=== PATIENT | female | born 1940 | race Caucasian/White ===

== ENCOUNTER 2021-04-16 08:53 | Outpatient (REF) | payer MEDICARE, SELFPAY ==
[2021-04-16 11:52] LABS: MANUAL DIFF FLAG NO
[2021-04-16 11:55] LABS: Basophils Absolute Auto 0.1 X10*3/uL (0.0-0.2); Basophils Percent Auto 1.1 % (0-2); Eosinophils Absolute Auto 0.1 X10*3/uL (0.0-0.4); Eosinophils Percent Auto 1.6 % (0-4); Hemoglobin 14.4 g/dl (12.0-16.0); Imm Gran Abs Auto 0.01 X10*3/uL (0.00-0.03); Imm Gran Pct Auto 0.2 % (0.0-0.4); Lymphocytes Absolute Auto 2.1 X10*3/uL (1.2-4.9); Lymphocytes Percent Auto 33.1 % (20-40); Mean Corpuscular Hemoglobin 29.8 pg (27.0-33.0); Mean Corpuscular Volume 93.2 fL (80-98); Mean Platelet Volume 10.8 fL (9.4-12.3); Monocytes Absolute Auto 0.5 X10*3/uL (0.1-1.2); Monocytes Percent Auto 7.4 % (2-11); Neutrophils Absolute Auto 3.5 X10*3/uL (2.0-8.3); Neutrophils Percent Auto 56.6 % (45-73); Platelet Count 243 X10*3/uL (160-400); Red Blood Count 4.83 X10*6/uL (4.20-5.50); White Blood Count 6.3 X10*3/uL (4.8-10.8)
[2021-04-16 12:13] LABS: Alanine Aminotransferase 14 U/L (0-31); Anion Gap 15 (12-20); Aspartate Amino Transferase 16 U/L (5-31); Blood Urea Nitrogen 15 mg/dL (9-16); Calcium 10.2 mg/dL (8.4-10.2); Carbon Dioxide 27 mmol/L (22-29); Chloride 105 mmol/L (96-108); Cholesterol 161 mg/dL; Estimated Glomerular Filt Rate > 60; Glucose Fasting 126 mg/dL (60-99); HDL Cholesterol 50 mg/dL; LDL Cholesterol Calculated 81 mg/dl; Potassium 4.4 mmol/L (3.3-5.1); Sodium 143 mmol/L (135-145); Triglycerides 153 mg/dL
[2021-04-16 12:20] LABS: Estimated Average Glucose 131 mg/dL; Hemoglobin A1c % 6.2 %
[2021-04-16 12:45] LABS: Folate 18.7 ng/mL (> or = 4.0); Vitamin B12 462 pg/mL (200-900)
[2021-04-16 12:48] LABS: TSH reflex Free T4 2.02 uIU/mL (0.32-4.0); Vitamin D 25-OH Total 32.9 ng/mL (>30)
== END 2021-04-16 08:54 | disposition home or self-care (01) ==
LOC: HO.HMGCLDS 08:53
PROVIDERS: PCP Internal Medicine; Visit Provider Internal Medicine
DX: E78.5 Hyperlipidemia, unspecified (principal); F03.90 Unspecified dementia, unspecified severity, without behavioral disturbance, psychotic disturbance, mood disturbance, and anxiety; I10 Essential (primary) hypertension; R73.01 Impaired fasting glucose; Z78.0 Asymptomatic menopausal state
CPT/HCPCS: 36415; 80048; 80061; 82306; 82607; 82746; 83036; 84443; 84450; 84460; 85025

== ENCOUNTER 2022-04-25 11:35 | Outpatient (REF) | payer MEDICARE, SELFPAY ==
[2022-04-25 13:52] LABS: MANUAL DIFF FLAG NO
[2022-04-25 13:59] LABS: Basophils Absolute Auto 0.1 X10*3/uL (0.0-0.2); Eosinophils Absolute Auto 0.2 X10*3/uL (0.0-0.4); Eosinophils Percent Auto 2.2 % (0-4); Hematocrit 41.6 % (37.0-47.0); Hemoglobin 13.3 g/dl (12.0-16.0); Imm Gran Abs Auto 0.04 X10*3/uL (0.00-0.03); Imm Gran Pct Auto 0.5 % (0.0-0.4); Lymphocytes Percent Auto 27.3 % (20-40); Mean Corpuscular Hemoglobin 29.5 pg (27.0-33.0); Mean Corpuscular Volume 92.2 fL (80.0-98.0); Mean Platelet Volume 11.6 fL (9.4-12.3); Monocytes Absolute Auto 0.7 X10*3/uL (0.1-1.2); Neutrophils Absolute Auto 4.4 x10*3/uL (2.0-8.3); Platelet Count 211 X10*3/uL (160-400); Red Blood Count 4.51 X10*6/uL (4.20-5.50); Red Cell Distribution Width 13.3 % (11.0-16.0); White Blood Count 7.4 X10*3/uL (4.8-10.8)
[2022-04-25 14:17] LABS: Estimated Average Glucose 154 mg/dL
[2022-04-25 14:19] LABS: Alanine Aminotransferase 11 U/L (0-31); Anion Gap 15 (12-20); Aspartate Amino Transferase 15 U/L (5-31); Blood Urea Nitrogen 15 mg/dL (9-16); Calcium 9.2 mg/dL (8.4-10.2); Carbon Dioxide 25 mmol/L (22-29); Chloride 108 mmol/L (96-108); Cholesterol 184 mg/dL; Estimated Glomerular Filt Rate > 60; Glucose Fasting 119 mg/dL (60-99); HDL Cholesterol 43 mg/dL; LDL Cholesterol Calculated 102 mg/dl; Potassium 4.6 mmol/L (3.3-5.1); Sodium 143 mmol/L (135-145); Triglycerides 195 mg/dL
[2022-04-25 14:31] LABS: Vitamin D 25-OH Total 18.9 ng/mL (>30)
[2022-04-25 15:25] LABS: Folate 11.2 ng/mL (> or = 4.0); Vitamin B12 355 pg/mL (200-900)
== END 2022-04-25 11:36 | disposition home or self-care (01) ==
LOC: HO.HMGCLDS 11:35
PROVIDERS: PCP Internal Medicine; Visit Provider Internal Medicine
DX: F03.90 Unspecified dementia, unspecified severity, without behavioral disturbance, psychotic disturbance, mood disturbance, and anxiety (principal); M19.90 Unspecified osteoarthritis, unspecified site; R73.01 Impaired fasting glucose; E78.5 Hyperlipidemia, unspecified
CPT/HCPCS: 36415; 80048; 80061; 82306; 82607; 82746; 83036; 84450; 84460; 85025

== ENCOUNTER 2022-10-31 10:02 | Outpatient (REF) | payer MEDICARE, BC, SELFPAY ==
[2022-10-31 13:19] LABS: Alanine Aminotransferase 14 U/L (0-31); Anion Gap 13 (12-20); Aspartate Amino Transferase 13 U/L (5-31); Blood Urea Nitrogen 19 mg/dL (9-16); Calcium 9.6 mg/dL (8.4-10.2); Carbon Dioxide 27 mmol/L (22-29); Chloride 106 mmol/L (96-108); Cholesterol 150 mg/dL; Estimated Glomerular Filt Rate > 60; Glucose Fasting 135 mg/dL (60-99); HDL Cholesterol 45 mg/dL; LDL Cholesterol Calculated 91 mg/dl; Potassium 4.4 mmol/L (3.3-5.1); Sodium 142 mmol/L (135-145); Triglycerides 72 mg/dL
[2022-10-31 13:35] LABS: TSH reflex Free T4 2.04 uIU/mL (0.32-4.0); Vitamin D 25-OH Total 39.9 ng/mL (>30)
== END 2022-10-31 10:03 | disposition home or self-care (01) ==
LOC: HO.HMGCLDS 10:02
PROVIDERS: PCP Internal Medicine; Visit Provider Internal Medicine
DX: M19.90 Unspecified osteoarthritis, unspecified site (principal); R73.01 Impaired fasting glucose; F03.90 Unspecified dementia, unspecified severity, without behavioral disturbance, psychotic disturbance, mood disturbance, and anxiety; E78.5 Hyperlipidemia, unspecified; N95.9 Unspecified menopausal and perimenopausal disorder
CPT/HCPCS: 36415; 80048; 80061; 82306; 84443; 84450; 84460

== ENCOUNTER 2022-11-03 12:56 | Outpatient (REF) | payer MEDICARE, BC, SELFPAY ==
--- NOTE | ~2022-11-03 | XR_ITS ---
EXAMINATION: XR LUMBOSACRAL SPINE WITH OBLIQUES CLINICAL INFORMATION: Chronic pain. COMPARISON: None available. TECHNIQUE: AP, both oblique, and lateral views of the lumbar spine. Lateral view of the lumbosacral junction. FINDINGS: There is normal lumbar lordosis. There are bilateral L1 ribs. The vertebral heights and alignment is normal. No visible acute fracture or dislocation. No lytic or sclerotic process seen. There is bilateral L5-S1 facet joint hypertrophy. The SI joints are symmetrical and normal. XR/XR lumbar spine 4V min IMPRESSION: Bilateral L5-S1 facet joint hypertrophy. No visible acute fracture, dislocation or lytic process seen.
== END 2022-11-03 12:57 | disposition home or self-care (01) ==
LOC: HO.HMGCX 12:56
PROVIDERS: PCP Internal Medicine; Visit Provider Internal Medicine
DX: M54.50 Low back pain, unspecified (principal); G89.29 Other chronic pain
CPT/HCPCS: 72110

== ENCOUNTER 2023-01-08 10:46 | Outpatient (AMB) | payer MEDICARE, BC, SELFPAY ==
--- NOTE | 2023-01-08 11:11 | A.OFFPC_ITS ---
Vital Signs 01/08/23 11:13 Height 5 ft 4 in Weight 124 lb 2 oz BMI 21.3 BP 120/72 Blood Pressure Location Rt brachial Position Sitting Pulse 68 Pulse Source Pulse Oximeter Pulse Oximetry (%) 99 Oxygen Delivery Method Room Air Intake Visit Reasons: Frequent Urination Intake Note: Pt is here today for frequent urination Allergies lisinopril Adverse Reaction (Unknown, Verified 01/08/23 11:20) cough Medication List - Last Reconciled 01/08/23 by Cristela Brand MD acetaminophen (Tylenol) 325 mg PO QID PRN atorvastatin 10 mg PO Q OTHER DAY cholecalciferol (vitamin D3) 2,000 units PO DAILY donepezil 10 mg PO DAILY hydrochlorothiazide 12.5 mg PO Q OTHER DAY memantine 10 mg PO BID tramadol 50 mg PO DAILY PRN vitamin B complex 1 tab PO DAILY Tobacco use date assessed: 01/08/23 Fall risk assessment: 2 + Falls in past year (3 times) Last assessed Fall Risk: 01/08/23 HPI Frequent Urination HPI Details 82-year-old lady with dyslipidemia, dementia, and diabetes mellitus type 2 currently managed by diet, here today accompanied by daughter complaining of frequent urination, not accompanied dysuria, no back pain or abdominal pain but does complain of some pressure over suprapubic area. Denies any accompanying fever, no nausea or vomiting. [facility] Medical History (Updated 01/08/23 @ 11:45 by Cristela Brand MD) Chronic low back pain Dementia Dyslipidemia Osteoarthritis Type 2 diabetes mellitus without complication, without long-term current use of insulin Surgical History History of appendectomy Hx laparoscopic cholecystectomy Family History Mother HTN (hypertension) Hyperlipidemia Diabetes mellitus Son No problems noted. Son No problems noted. Daughter No problems noted. Daughter No problems noted. Social History Housing: Other Housing Other:: Lives with daughter Teto Patient Tobacco Use Status: Former Tobacco user Years Smoked: 30 yrs e-Cigarette/Vaping Use: Never Used Second Hand Smoke Exposure: No Current occupational status: retired Cognitive needs: No Hearing needs: No Vision needs: Yes Questionnaire Thrive Questionnaire Date Thrive assessed: 05/07/22 AUDIT C Alcohol Use Questionnaire (AUDIT-C) 1. How often do you have a drink containing alcohol?: Never Total Score: 0 LUZMA-7 AMB Questionnaire LUZMA-7 Date LUZMA - 7 assessed: 05/07/22 Source: Developed by Drs. Stanley Poe, Ann Donovan, Juan Wolf and colleagues, with an educational fercho from [employer]. Review of Systems Const All systems reviewed & are unremarkable except as noted in HPI and below Eyes Details: Up-to-date with her eye exam [facility] [place] Physical exam ([facility]) Vital Signs: Last Vital Signs Pulse 68 01/08/23 11:13 BP 120/72 01/08/23 11:13 Pulse Ox 99 01/08/23 11:13 Oxygen Delivery Method Room Air 01/08/23 11:13 BMI result Body Mass Index 21.3 Tobacco/Smoking Status: Tobacco use Status Tobacco use date assessed 01/08/23 01/08/23 11:19 Patient Tobacco Use Status Former Tobacco user 01/08/23 11:12 e-Cigarette/Vaping Use Never Used 01/08/23 11:12 Thrive Assessment: Date of Thrive Assessment Date Thrive assessed 05/07/22 01/08/23 11:12 Const Other: Alert oriented x3, no acute distress noted ambulatory normal Orientation/consciousness: patient oriented x3 HENMT Mouth: Normal oral and palatal mucosa present, oropharynx normal and moist mucous membranes Neck Other: Supple with no lymphadenopathy, thyroid gland nonpalpable Resp Auscultation: clear to auscultation bilaterally Cardio Other: S1-S2 present regular rate and rhythm GI Other: Normal bowel sounds, soft, nontender with no mass palpated General: Yes no CVA tenderness Back/Spine/Pelvis Back: no CVA tenderness Neuro General: patient oriented x3, gait normal, moves all extremities and no focal motor deficits Results AMB Urinalysis, Automated UA Leukoctes 0 Deborah/uL Last Edit by Nohemi Candelaria CMA on 01/08/23 11:12 UA Nitrite Negative Last Edit by Nohemi Candelaria CMA on 01/08/23 11:12 UA Urobilinogen 0.2 mg/dL Last Edit by Nohemi Candelaria CMA on 01/08/23 11:12 UA Protein 0 mg/dL Last Edit by Nohemi Candelaria CMA on 01/08/23 11:12 UA pH 5.5 Last Edit by Nohemi Candelaria CMA on 01/08/23 11:12 UA Blood 0 Marco Antonio/uL Last Edit by Nohemi Candelaria CMA on 01/08/23 11:12 UA Specific [place] 1.030 Last Edit by Nohemi Candelaria CMA on 01/08/23 11:1 2 UA Ketone Negative Last Edit by Nohemi Candelaria CMA on 01/08/23 11:12 UA Bilirubin 0 mg/dL Last Edit by Nohemi Candelaria CMA on 01/08/23 11:12 UA Glucose 0 mg/dL Last Edit by Nohemi Candelaria CMA on 01/08/23 11:12 AMB Fasting Glucose AMB Fasting Glucose 140 mg/dL Last Edit by Remedios Negrete CMA on 01/08/23 11 :43 AMB Hemoglobin A1c AMB Hemoglobin A1c 6.6 % Last Edit by Remedios Negrete CMA on 01/08/23 11:47 Results Reviewed Results Reviewed: Laboratory Last Values Fast Glucose (Clinic) 140 mg/dL 01/08/23 11:41 Hgb A1c (Clinic) 6.6 % (4.0-6.0) H 01/08/23 11:44 Urine pH (Auto) 5.5 01/08/23 11:12 Specific [place] (Auto) 1.030 01/08/23 11:12 Urine Protein (Auto) 0 mg/dL 01/08/23 11:12 Glucose (UA)(Auto) 0 mg/dL 01/08/23 11:12 Urine Ketones (Auto) Negative 01/08/23 11:12 Urine Blood (Auto) 0 Marco Antonio/uL 01/08/23 11:12 Urine Nitrite (Auto) Negative 01/08/23 11:12 Urine Bilirubin (Auto) 0 mg/dL 01/08/23 11:12 Urine Urobilinogen (Auto) 0.2 mg/dL 01/08/23 11:12 Leukocyte Esterase (Auto) 0 Deborah/uL 01/08/23 11:12 Assessment and Plan Assessment & Plan (1) Type 2 diabetes mellitus without complication, without long-term current use of insulin: Code(s): E11.9 - Type 2 diabetes mellitus without complications Plan: Hemoglobin A1c is at 6.6% today and with fasting glucose at 140 mg/dl. continue to check fasting blood sugar at home, maintain log and bring to next appointment for review. Reinforced diabetic diet and regular exercise with patient. Counseled regarding importance of yearly diabetes retinopathy screening up-to-date currently [facility] [place]. Patient advised to inspect feet daily, for any signs of injury, callus or infection, sees Dr. Rutherford yearly. Compliance with diet and regular exercise again stressed. Blood pressure goal is less than 130/80, goal LDL is less than 100 and goal hemoglobin A1c is less than 7% follow-up appointment made in after repeat fasting labs done (2) Urinary frequency: Code(s): R35.0 - Frequency of micturition Plan: Urinalysis completely normal. Will stop HCTZ Orders: Orders AMB Urinalysis Automated 01/08/23 Z13.9 - Encounter for screening, unspecified AMB Fasting Glucose 01/08/23 Z13.9 - Encounter for screening, unspecified AMB Hemoglobin A1c 01/08/23 Z13.9 - Encounter for screening, unspecified Coding Level of Care Code Est Pt Level 3 (92723) Diagnoses Type 2 diabetes mellitus without complication, without long-term current use of insulin E11.9 Urinary frequency R35.0
[2023-01-08 11:13] VITALS: BP 120/72; PULSE 68; O2SAT 99; BMI 21.3
== END 2023-01-08 12:11 | disposition home or self-care (01) ==
LOC: HO.HMGC 10:46
PROVIDERS: PCP Internal Medicine; Visit Provider Internal Medicine
DX: E11.9 Type 2 diabetes mellitus without complications (principal); R35.0 Frequency of micturition
CPT/HCPCS: 81003; 82948; 83036; 99213

== ENCOUNTER 2023-04-21 08:09 | Outpatient (REF) | payer MEDICARE, BC, SELFPAY ==
[2023-04-21 12:06] LABS: Estimated Average Glucose 143 mg/dL; Hemoglobin A1c % 6.6 % (<6.0)
[2023-04-21 12:23] LABS: Alanine Aminotransferase 13 U/L (0-31); Anion Gap 13 (12-20); Aspartate Amino Transferase 15 U/L (5-31); Blood Urea Nitrogen 20 mg/dL (9-16); Carbon Dioxide 25 mmol/L (22-29); Chloride 108 mmol/L (96-108); Cholesterol 146 mg/dL (<200); Creatinine Urine 108.84 mg/dL; Estimated Glomerular Filt Rate > 60; Glucose Fasting 121 mg/dL (60-99); HDL Cholesterol 47 mg/dL (>40); LDL Cholesterol Calculated 75 mg/dL (<100); Microalbum/Creatinine Ratio Ur 8.2 ug/mg cr (<30); Potassium 4.1 mmol/L (3.3-5.1); Sodium 142 mmol/L (135-145); Triglycerides 122 mg/dL (<150); Vitamin D 25-OH Total 90.8 ng/mL (>30)
== END 2023-04-21 08:10 | disposition home or self-care (01) ==
LOC: HO.WFDLDS 08:09
PROVIDERS: Visit Provider Internal Medicine
DX: E11.65 Type 2 diabetes mellitus with hyperglycemia (principal); N95.9 Unspecified menopausal and perimenopausal disorder; E78.5 Hyperlipidemia, unspecified
CPT/HCPCS: 36415; 80048; 80061; 82043; 82306; 83036; 84450; 84460

== ENCOUNTER 2023-05-11 10:14 | Outpatient (AMB) | payer MEDICARE, BC, SELFPAY ==
--- NOTE | 2023-05-11 10:32 | A.OFFPC_ITS ---
Vital Signs 05/11/23 10:48 Height 5 ft 4 in Weight 125 lb BMI 21.5 BP 120/76 Blood Pressure Location Rt brachial Position Sitting Pulse 71 Pulse Source Pulse Oximeter Pulse Oximetry (%) 96 Oxygen Delivery Method Room Air Intake Visit Reasons: 4m follow up Intake Note: Pt is here today for her lab f/u results Allergies lisinopril Adverse Reaction (Unknown, Verified 05/11/23 10:51) cough Medication List - Last Reconciled 05/11/23 by Cristela Brand MD acetaminophen (Tylenol) 325 mg PO QID PRN atorvastatin 10 mg PO Q OTHER DAY cholecalciferol (vitamin D3) 2,000 units PO DAILY donepezil 10 mg PO DAILY memantine 10 mg PO QAM tramadol 50 mg PO DAILY PRN vitamin B complex 1 tab PO DAILY Tobacco use date assessed: 05/11/23 Fall risk assessment: No Falls in past year Last assessed Fall Risk: 05/11/23 Dental Screening Dental Screen Date: 05/11/23 Did you have a dental visit in the last 12 months?: No Did you have a dental problem in the last 6 months where you did not have access to dental care?: No Was dental information given to patient?: Patient has dentist HPI 4m follow up HPI Details 82-year-old lady with diabetes mellitus, dyslipidemia, hypertension, and dementia, here today for follow-up. She had recent fasting labs done which showed normal electrolytes, renal function, fasting glucose 121 mg/dL , liver enzymes and vitamin-D low as well as lipid levels are all within normal limits. Latest hemoglobin A1c is at 6.6%. Has been compliant with taking medications but activity levels is declining. She currently lives with her daughter, and goes to the [facility], which patient states she is enjoying doing [employer] Medical History Type 2 diabetes mellitus without complication, without long-term current use of insulin Chronic low back pain Osteoarthritis Dementia Dyslipidemia Surgical History Hx laparoscopic cholecystectomy History of appendectomy Family History Mother HTN (hypertension) Hyperlipidemia Diabetes mellitus Son No problems noted. Son No problems noted. Daughter No problems noted. Daughter No problems noted. Social History Housing: Other Housing Other:: Lives with daughter Teto Hurtado Tobacco Use Status: Former Tobacco user Years Smoked: 30 yrs e-Cigarette/Vaping Use: Never Used Second Hand Smoke Exposure: No Current occupational status: retired Cognitive needs: No Hearing needs: No Vision needs: Yes Questionnaire PHQ-9 Over the last 2 weeks, how often have you been bothered by any of the following problems? 1. Little interest or pleasure in doing things: more than half the days 2. Feeling down, depressed, or hopeless: not at all 3. Trouble falling or staying asleep, or sleeping too much: several days 4. Feeling tired or having little energy: several days 5. Poor appetite or overeating: not at all 6. Feeling bad about yourself - or that you are a failure or have let yourself or your family down: not at all 7. Trouble concentrating on things, such as reading the newspaper or watching television: nearly every day 8. Moving or speaking so slowly that other people could have noticed. Or the opposite - being so fidgety or restless that you have been moving around a lot more than usual: nearly every day 9. Thoughts that you would be better off or of hurting yourself in some way: not at all Total score: 10 Depression Screening Interpretation: Negative 16763 - PHQ-9 Billing: Yes Source: Developed by Drs. Stanley Poe, Ann Donovan, Juan Wolf and colleagues, with an educational fercho from [employer]. Thrive Questionnaire Date Thrive assessed: 05/11/23 I am a: Patient What is your living situation today?: I have a steady place to live Within the past 12 months, did the food you bought not last and you didn't have the money to get more?: Never true Within the past 12 months, did you worry whether your food would run out before you got money to buy more?: Never true Do you have trouble paying for medicines?: No Do you have trouble getting transportation to medical appointments?: No Do you have trouble paying your heating and electricity bill?: No Do you have trouble taking care of your child, family member or friend?: Yes Do you have trouble with day-to-day activities such as bathing, preparing meals, shopping, managing finances, etc.?: No Are you currently unemployed and looking for a job?: No Are you interested in more education?: No LUZMA-7 AMB Questionnaire LUZMA-7 Date LUZMA - 7 assessed: 05/11/23 Feeling nervous, anxious, or on edge: 0 = Not at all Not being able to stop or control worryin = Not at all Worrying too much about different things: 0 = Not at all Trouble relaxin = Not at all Being so restless that it is hard to sit still: 0 = Not at all Becoming easily annoyed or irritable: 0 = Not at all Feeling afraid as if something awful might happen: 0 = Not at all Total LUZMA-7 score (0-4 normal; 5-9 mild; 10-14 moderate; 15-21 severe): 0 Source: Developed by Drs. Stanley Poe, Ann Donovan, Juan Wolf and colleagues, with an educational fercho from [employer]. LUZMA-7 Assessment Billing LUZMA-7 Assessment Tool: LUZMA-7 Assessment 37547 Review of Systems Const Denies fever(s), Denies headache(s) and Denies weakness Eyes Denies change in vision ENT Denies dizziness, Denies headache(s), Denies nasal congestion, Denies nasal discharge and Denies sore throat Card Denies chest pain, Denies lightheadedness, Denies palpitations and Denies dyspnea Resp Denies chest congestion, Denies cough, Denies dyspnea and Denies wheezing GI Denies abdominal pain, Denies change in bowel habits and Denies heartburn Denies hematuria, Denies urinary frequency, Denies dysuria and Denies urinary urgency Musc Reports as per HPI, Denies radiating pain into limb and Reports stiffness Skin/Breast Denies breast swelling, Denies breast pain and Denies rash Neuro Denies dizziness, Denies headache(s) and Denies weakness Endo Denies polydipsia, Denies polyuria and Denies palpitations Colin/Lymph Denies easy bruising Aller/Immun Denies seasonal rhinorrhea and Denies wheezing Physical exam ([facility]) Vital Signs: Last Vital Signs Pulse 71 05/11/23 10:48 BP 120/76 05/11/23 10:48 Pulse Ox 96 05/11/23 10:48 Oxygen Delivery Method Room Air 05/11/23 10:48 BMI result Body Mass Index 21.5 Tobacco/Smoking Status: Tobacco use Status Tobacco use date assessed 05/11/23 05/11/23 10:33 Patient Tobacco Use Status Former Tobacco user 05/11/23 10:33 e-Cigarette/Vaping Use Never Used 05/11/23 10:33 PHQ-9: PHQ-9 Score PHQ-9: Total score 10 05/11/23 11:25 Depression Screening Interpretation: Negative Thrive Assessment: Date of Thrive Assessment Date Thrive assessed 05/11/23 05/11/23 11:25 Const Other: Alert oriented x3, no acute distress noted ambulatory normal Orientation/consciousness: patient oriented x3 HENMT Mouth: Normal oral and palatal mucosa present, oropharynx normal and moist mucous membranes Eyes General: appearance normal, both eyes and all related structures Neck Other: Supple with no lymphadenopathy, thyroid gland nonpalpable Resp Auscultation: clear to auscultation bilaterally Cardio Other: S1-S2 present regular rate and rhythm GI Other: Normal bowel sounds, soft, nontender with no mass palpated General: Yes no CVA tenderness Back/Spine/Pelvis Back: no CVA tenderness Skin General skin exam: no rashes or lesions noted Neuro General: patient oriented x3, gait normal, moves all extremities and no focal motor deficits Extrem General: Yes full ROM, Yes no joint enlargement, Yes no clubbing, cyanosis or edema and Yes normal gait Psych Appearance: grossly normal and well kempt Mental Status: mental status grossly normal Speech and movement: Slowed speech present (Psych) Affect: normal affect Attitude: cooperative Results Reviewed Results Reviewed: RUN: 05/11/23 1050 PAGE 1 [facility] [address] [place] [id number] [employer] Software Engineer: Nicho Blunt M.D. Specimen Inquiry Name: Kisha Mejia Age/Sex: 82/F : 1940 Unit#: [id number] Attend Dr: Cristela Brand MD Re04/21/23 Status: DEP REF Location: [facility] Disch: SPEC : [id number] RENETTA: 04/21/23 STATUS: COMP REQ : [id number] RECD: 04/21/23-[address]: Cristela Brand MD COMP: 04/21/23 ENTERED: 04/21/[address]: ORDERED: Met Prof Fast, AST, ALT, Lipid Panel, Vitamin D 25-OH Test Result Flag Reference Site Sodium 142 135-145 mmol/L Potassium 4.1 3.3-5.1 mmol/L CL 108 96-108 mmol/L CO2 25 22-29 mmol/L Gap 13 12-20 BUN 20 H 9-16 mg/dL Creat 0.74 0.5-1.4 mg/dL EGFR > 60 NOTE: For -Macanese individuals, multiply the result by 1.210. Chronic Kidney Disease: Estimated GFR < 60 mL/min/1.73m2 Severe Kidney Disease: Estimated GFR < 15 mL/min/1.73m2 FBS 121 H 60-99 mg/dL A fasting glucose from 100-125 mg/dl is considered impaired (pre-diabetes). CA 10.0 8.4-10.2 mg/dL AST (GOT) 15 5-31 U/L ALT (GPT) 13 0-31 U/L Triglyceride 122 <150 mg/dL Desirable Triglyceride: less than 150 mg/dL Borderline High Triglyceride 150-199 mg/dL High Triglyceride: 200-499 mg/dL Very High Triglyceride: greater than or equal to 5OO mg/dL Cholesterol 146 <200 mg/dL Desirable Cholesterol: less than 200 mg/dL Borderline High Cholesterol: 200-239 mg/dL High Cholesterol: greater than 239 mg/dL LDL Calculated 75 <100 mg/dL Desirable LDL: less than 100 mg/dL Near Optimal/Above Optimal LDL: 110-129 mg/dL Borderline High LDL: 130-159 mg/dL High LDL: 160-189 mg/dL Very High LDL: greater than or equal to 190 mg/dL HDL 47 >40 mg/dL Desirable HDL: greater than 40 mg/dL Note: This HDL assay may give artificially low results in patients with liver disease. Vit D 25-OH Tot 90.8 >30 ng/mL Health Based Reference Values* < 20 ng/mL Deficient 20-30 ng/mL Insufficient > 30 ng/mL Sufficient Laboratory Tests 04/21/23 08:13 Estimat Average Glucose 143 Hemoglobin A1c % 6.6 H Assessment and Plan Assessment & Plan (1) Type 2 diabetes mellitus without complication, without long-term current use of insulin: Code(s): E11.9 - Type 2 diabetes mellitus without complications Plan: Hemoglobin A1c is 6.6%, continued on controlling diabetes through diet and exercise. Does not want to start on any new medications at present time (2) Dyslipidemia: Code(s): E78.5 - Hyperlipidemia, unspecified Plan: Reviewed recent fasting lipid profile with patient with levels within normal limits . Continue with atorvastatin 10 mg every other day , in addition to adherence to low-cholesterol diet and regular exercise, at least 30 minutes 3 to 4 times a week. Advised patient to make healthy food choices, eat more fruits, vegetables, whole grains, wild caught fish and low-fat dairy. Limit amount of meat and fried or fatty food products, as well as processed foods and fast foods. Follow-up scheduled with repeat fasting lipid panel in 6 months. (3) Dementia: Code(s): F03.90 - Unspecified dementia, unspecified severity, without behavioral disturbance, psychotic disturbance, mood disturbance, and anxiety Qualifiers: Dementia type: vascular dementia Dementia severity: unspecified severity Dementia behavioral or psychological symptom: without behavioral, psychotic, or mood disturbance or anxiety Qualified Code(s): F01.50 - Vascular dementia, unspecified severity, without behavioral disturbance, psychotic disturbance, mood disturbance, and anxiety Plan: Stable on memantine and donepezil (4) Osteoarthritis: Code(s): M19.90 - Unspecified osteoarthritis, unspecified site Plan: Currently takes acetaminophen 325 mg daily, and an occasional tramadol as needed for severe joint pains. Orders: Orders Vitamin D 25-OH Total 10/23/23 E11.9 - Type 2 diabetes mellitus without complications, E78.5 - Hyperlipidemia, unspecified, Z78.0 - Asymptomatic menopausal state Lipid Panel 10/23/23 E11.9 - Type 2 diabetes mellitus without complications, E78.5 - Hyperlipidemia, unspecified, Z78.0 - Asymptomatic menopausal state Microalbumin, Random (w Creat) 10/23/23 E11.9 - Type 2 diabetes mellitus without complications, E78.5 - Hyperlipidemia, unspecified, Z78.0 - Asymptomatic menopausal state Basic Metabolic Panel Fasting 10/23/23 E11.9 - Type 2 diabetes mellitus without complications, E78.5 - Hyperlipidemia, unspecified, Z78.0 - Asymptomatic menopausal state Alanine Aminotransferase 10/23/23 E11.9 - Type 2 diabetes mellitus without complications, E78.5 - Hyperlipidemia, unspecified, Z78.0 - Asymptomatic menopausal state Hemoglobin A1c 10/23/23 E11.9 - Type 2 diabetes mellitus without complications, E78.5 - Hyperlipidemia, unspecified, Z78.0 - Asymptomatic menopausal state Aspartate Amino Transferase 10/23/23 E11.9 - Type 2 diabetes mellitus without complications, E78.5 - Hyperlipidemia, unspecified, Z78.0 - Asymptomatic menopausal state Medications: Changed From memantine 10 mg PO BID 180 caps 3RF To memantine 10 mg PO QAM Coding Level of Care Code Est Pt Level 4 (22720) Diagnoses Type 2 diabetes mellitus without complication, without long-term current use of insulin E11.9 Dyslipidemia E78.5 Vascular dementia without behavioral disturbance, psychotic disturbance, mood disturbance, or anxiety, unspecified dementia severity F01.50 Dementia type: vascular dementia Dementia severity: unspecified severity Dementia behavioral or psychological symptom: without behavioral, psychotic, or mood disturbance or anxiety Osteoarthritis M19.90 Additional Codes LUZMA-7 Assessment Billing - LUZMA-7 Assessment Tool: LUZMA-7 Assessment 98120 ([id number])
[2023-05-11 10:48] VITALS: BP 120/76; PULSE 71; O2SAT 96; BMI 21.5
== END 2023-05-11 11:11 | disposition home or self-care (01) ==
PROVIDERS: Visit Provider Internal Medicine
DX: E11.9 Type 2 diabetes mellitus without complications (principal); E78.5 Hyperlipidemia, unspecified; F01.50 Vascular dementia, unspecified severity, without behavioral disturbance, psychotic disturbance, mood disturbance, and anxiety; M19.90 Unspecified osteoarthritis, unspecified site
CPT/HCPCS: 99214

== ENCOUNTER 2023-11-10 08:30 | Outpatient (REF) | payer MEDICARE, BC, SELFPAY ==
[2023-11-10 11:51] LABS: Estimated Average Glucose 154 mg/dL
[2023-11-10 12:22] LABS: Alanine Aminotransferase 13 U/L (0-31); Anion Gap 11 (12-20); Aspartate Amino Transferase 13 U/L (5-31); Blood Urea Nitrogen 26 mg/dL (9-16); Calcium 9.9 mg/dL (8.4-10.2); Carbon Dioxide 30 mmol/L (22-29); Chloride 107 mmol/L (96-108); Cholesterol 134 mg/dL (<200); Estimated Glomerular Filt Rate > 60; Glucose Fasting 142 mg/dL (60-99); HDL Cholesterol 48 mg/dL (>40); LDL Cholesterol Calculated 73 mg/dL (<100); Potassium 4.3 mmol/L (3.3-5.1); Sodium 144 mmol/L (135-145); Triglycerides 69 mg/dL (<150)
[2023-11-10 12:27] LABS: Creatinine Urine 140.87 mg/dL; Microalbum/Creatinine Ratio Ur 34.7 ug/mg cr (<30)
[2023-11-10 12:41] LABS: Vitamin D 25-OH Total 51.4 ng/mL (>30)
== END 2023-11-10 08:31 | disposition home or self-care (01) ==
LOC: HO.HMGCLDS 08:30
PROVIDERS: PCP Internal Medicine; Visit Provider Internal Medicine
DX: E11.9 Type 2 diabetes mellitus without complications (principal); E78.5 Hyperlipidemia, unspecified; Z78.0 Asymptomatic menopausal state
CPT/HCPCS: 36415; 80048; 80061; 82043; 82306; 82570; 83036; 84450; 84460

== ENCOUNTER 2023-11-12 09:59 | Outpatient (AMB) | payer MEDICARE, BC, SELFPAY ==
--- NOTE | 2023-11-12 10:02 | MHC.PC.OV ---
Vital Signs 11/12/23 10:05 Height 5 ft 4 in Weight 124 lb BMI 21.3 BP 122/60 Blood Pressure Location Rt brachial Position Sitting Pulse 65 Pulse Source Pulse Oximeter Pulse Oximetry (%) 98 Oxygen Delivery Method Room Air Intake Visit Reasons: Annual PE Intake Note: Pt is here today for her PE Allergies lisinopril Adverse Reaction (Unknown, Verified 11/12/23 10:19) cough Medication List - Last Reconciled 11/12/23 by Cristela Brand MD acetaminophen (Tylenol) 325 mg PO QID PRN atorvastatin 10 mg PO Q OTHER DAY cholecalciferol (vitamin D3) 2,000 units PO DAILY donepezil 10 mg PO DAILY memantine 10 mg PO QAM tramadol 50 mg PO DAILY PRN vitamin B complex 1 tab PO DAILY Tobacco use date assessed: 11/12/23 Fall risk assessment: 1 Fall in past year Last assessed Fall Risk: 11/12/23 Dental Screening Dental Screen Date: 11/12/23 Did you have a dental visit in the last 12 months?: No Was dental information given to patient?: No HPI Annual PE HPI Details 83-year-old lady with history type 2 diabetes mellitus with microalbuminuria, generalized anxiety disorder, chronic low back pain due to arthritis, dementia and dyslipidemia, here today for physical exam. She is accompanied today by her daughter with whom she lives with. History mostly obtained from patient's daughter. As per her patient has been doing well, eating, no worsening or any improvement in memory noted, currently on memantine and donepezil. Blood pressure has been stable controlled on present treatment. She is up-to-date with her vaccinations but no longer gets her mammograms or her bone density scan testing. Patient daughter however states that her mom easily gets agitated and anxious, worries all the time. [facility] Medical History (Updated 11/12/23 @ 10:47 by Cristela Brand MD) Type 2 diabetes mellitus with microalbuminuria History of COVID-19 Generalized anxiety disorder Chronic low back pain Osteoarthritis Dementia Dyslipidemia Surgical History Hx laparoscopic cholecystectomy History of appendectomy Family History Mother HTN (hypertension) Hyperlipidemia Diabetes mellitus Son No problems noted. Son No problems noted. Daughter No problems noted. Daughter No problems noted. Social History Housing: Other Housing Other:: Lives with daughter Teto Hurtado Tobacco Use Status: Former Tobacco user Years Smoked: 30 yrs e-Cigarette/Vaping Use: Never Used Second Hand Smoke Exposure: No Current occupational status: retired Cognitive needs: No Hearing needs: No Vision needs: Yes Questionnaire PHQ-9 Over the last 2 weeks, how often have you been bothered by any of the following problems? 1. Little interest or pleasure in doing things: not at all 2. Feeling down, depressed, or hopeless: not at all 3. Trouble falling or staying asleep, or sleeping too much: not at all 4. Feeling tired or having little energy: several days 5. Poor appetite or overeating: not at all 6. Feeling bad about yourself - or that you are a failure or have let yourself or your family down: not at all 7. Trouble concentrating on things, such as reading the newspaper or watching television: several days 8. Moving or speaking so slowly that other people could have noticed. Or the opposite - being so fidgety or restless that you have been moving around a lot more than usual: more than half the days 9. Thoughts that you would be better off or of hurting yourself in some way: not at all Total score: 4 Depression Screening Interpretation: Negative Depression Screening Done: Yes 28990 - PHQ-9 Billing: Yes Source: Developed by Drs. Stanley Poe, Ann Donovan, Juan Wolf and colleagues, with an educational fercho from [employer]. Thrive Questionnaire Date Thrive assessed: 11/12/23 I am a: Parent/Caregiver What is your living situation today?: I have a steady place to live Within the past 12 months, did the food you bought not last and you didn't have the money to get more?: Never true Within the past 12 months, did you worry whether your food would run out before you got money to buy more?: Never true Do you have trouble paying for medicines?: No Do you have trouble getting transportation to medical appointments?: No Do you have trouble paying your heating and electricity bill?: No Do you have trouble taking care of your child, family member or friend?: No Do you have trouble with day-to-day activities such as bathing, preparing meals, shopping, managing finances, etc.?: No Are you currently unemployed and looking for a job?: No Are you interested in more education?: No THRIVE Score: 0 AUDIT C Alcohol Use Questionnaire (AUDIT-C) 1. How often do you have a drink containing alcohol?: Never Total Score: 0 LUZMA-7 AMB Questionnaire LUZMA-7 Date LUZMA - 7 assessed: 05/11/23 Feeling nervous, anxious, or on edge: 2 = More than half the days Not being able to stop or control worryin = More than half the days Worrying too much about different things: 2 = More than half the days Trouble relaxin = Several days Being so restless that it is hard to sit still: 1 = Several days Becoming easily annoyed or irritable: 1 = Several days Feeling afraid as if something awful might happen: 2 = More than half the days Total LUZMA-7 score (0-4 normal; 5-9 mild; 10-14 moderate; 15-21 severe): 11 Source: Developed by Drs. Stanley Poe, Ann Donovan, Juan Wolf and colleagues, with an educational fercho from [employer], [employer]. LUZMA-7 Assessment Billing LUZMA-7 Assessment Tool: LUZMA-7 Assessment 92726 (started today on Buspirone and Hydroxyzine prm for anxiety) Review of Systems Const Denies fever(s), Denies headache(s) and Denies weakness Eyes Denies change in vision ENT Denies dizziness, Denies headache(s), Denies nasal congestion, Denies nasal discharge and Denies sore throat Card Denies chest pain, Denies lightheadedness, Denies palpitations and Denies dyspnea Resp Denies chest congestion, Denies cough, Denies dyspnea and Denies wheezing GI Denies abdominal pain, Denies change in bowel habits and Denies heartburn Denies hematuria, Denies urinary frequency, Denies dysuria and Denies urinary urgency Musc Reports as per HPI, Denies radiating pain into limb and Reports stiffness Skin/Breast Denies breast swelling, Denies breast pain and Denies rash Neuro Denies dizziness, Denies headache(s) and Denies weakness Psych Reports as per HPI Endo Denies polydipsia, Denies polyuria and Denies palpitations Colin/Lymph Denies easy bruising Aller/Immun Denies seasonal rhinorrhea and Denies wheezing Physical exam (Primary Care) Vital Signs: Last Vital Signs Pulse 65 11/12/23 10:05 BP 122/60 11/12/23 10:05 Pulse Ox 98 11/12/23 10:05 Oxygen Delivery Method Room Air 11/12/23 10:05 BMI result Body Mass Index 21.3 Tobacco/Smoking Status: Tobacco use Status Tobacco use date assessed 11/12/23 11/12/23 10:10 Patient Tobacco Use Status Former Tobacco user 11/12/23 10:10 e-Cigarette/Vaping Use Never Used 11/12/23 10:10 Depression Screening Interpretation: Negative Thrive Assessment: Date of Thrive Assessment Date Thrive assessed 11/12/23 11/12/23 10:44 Const Other: Alert oriented x3, no acute distress noted ambulatory normal HENMT Mouth: Normal oral and palatal mucosa present, oropharynx normal and moist mucous membranes Eyes General: appearance normal, both eyes and all related structures Neck Other: Supple with no lymphadenopathy, thyroid gland nonpalpable Resp Auscultation: clear to auscultation bilaterally Cardio Other: S1-S2 present regular rate and rhythm GI Other: Normal bowel sounds, soft, nontender with no mass palpated General: Yes no CVA tenderness Back/Spine/Pelvis Back: no CVA tenderness Skin General skin exam: no rashes or lesions noted Neuro General: gait normal, moves all extremities and no focal motor deficits Extrem General: Yes full ROM, Yes no joint enlargement, Yes no clubbing, cyanosis or edema and Yes normal gait Psych Appearance: grossly normal and well kempt Mental Status: mental status grossly normal Speech and movement: Slowed speech present (Psych) Affect: normal affect Attitude: cooperative Results Reviewed Results Reviewed: Laboratory Tests 11/10/23 08:37 Estimat Average Glucose 154 Hemoglobin A1c % 7.0 H Urine Creatinine 140.87 Urine Microalbumin 49.0 Microalb/Creat Ratio 34.7 H Name: Kisha Mejia Age/Sex: 83/F : 1940 Unit#: [id number] Attend Dr: Cristela Brand MD Re11/10/23 Status: DEP REF Location: [facility] Disch: SPEC : [id number] REN[place]: 11/10/23 STATUS: COMP REQ : [id number] RECD: 11/10/23-[address] [facility] [address]: Cristela Brand MD COMP: 11/10/23-1241 ENTERED: 11/10/[address] [facility] [address]: ORDERED: Met Prof Fast, AST, ALT, Lipid Panel, Vitamin D 25-OH Test Result Flag Reference Sodium 144 135-145 mmol/L Potassium 4.3 3.3-5.1 mmol/L CL 107 96-108 mmol/L CO2 30 H 22-29 mmol/L Gap 11 L 12-20 BUN 26 H 9-16 mg/dL Creat 0.85 0.5-1.4 mg/dL EGFR > 60 NOTE: For -[place] individuals, multiply the result by 1.210. Chronic Kidney Disease: Estimated GFR < 60 mL/min/1.73m2 Severe Kidney Disease: Estimated GFR < 15 mL/min/1.73m2 FBS 142 H 60-99 mg/dL A fasting glucose of 126 mg/dl or greater on more than one occasion is considered diagnostic of diabetes. CA 9.9 8.4-10.2 mg/dL AST (GOT) 13 5-31 U/L ALT (GPT) 13 0-31 U/L Triglyceride 69 <150 mg/dL Desirable Triglyceride: less than 150 mg/dL Borderline High Triglyceride 150-199 mg/dL High Triglyceride: 200-499 mg/dL Very High Triglyceride: greater than or equal to 5OO mg/dL Cholesterol 134 <200 mg/dL Desirable Cholesterol: less than 200 mg/dL Borderline High Cholesterol: 200-239 mg/dL High Cholesterol: greater than 239 mg/dL LDL Calculated 73 <100 mg/dL Desirable LDL: less than 100 mg/dL Near Optimal/Above Optimal LDL: 110-129 mg/dL Borderline High LDL: 130-159 mg/dL High LDL: 160-189 mg/dL Very High LDL: greater than or equal to 190 mg/dL HDL 48 >40 mg/dL Desirable HDL: greater than 40 mg/dL Note: This HDL assay may give artificially low results in patients with liver disease. Vit D 25-OH Tot 51.4 >30 ng/mL Health Based Reference Values* < 20 ng/mL Deficient 20-30 ng/mL Insufficient > 30 ng/mL Sufficient Assessment and Plan Assessment & Plan (1) Annual visit for general adult medical examination with abnormal findings: Code(s): Z00.01 - Encounter for general adult medical examination with abnormal findings Plan: Discuss recent fasting lab results with patient and daughter. Continue dental visit every 6 months and regular eye exams. Take adequate calcium in diet and vitamin-D 3 at 2000 IU per cap once a day, in addition to weight-bearing exercises to help maintain good muscle tone and weight control. Up-to-date with her yearly flu shot, COVID vaccine, RSV, pneumococcal vaccine and Tdap as well as shingles vaccine (2) Generalized anxiety disorder: Code(s): F41.1 - Generalized anxiety disorder Plan: Will start on buspirone 5 mg per tablet 1 tablet 3 times a day, start with twice a day dosing morning and night, prescription was sent for hydroxyzine 10 mg per tablet to take 1 tablet once a day only as needed for acute anxiety attacks. Follow-up in 3 month (3) Dementia: Code(s): F03.90 - Unspecified dementia, unspecified severity, without behavioral disturbance, psychotic disturbance, mood disturbance, and anxiety Qualifiers: Dementia behavioral or psychological symptom: without behavioral, psychotic, or mood disturbance or anxiety Dementia severity: unspecified severity Dementia type: vascular dementia Qualified Code(s): F01.50 - Vascular dementia, unspecified severity, without behavioral disturbance, psychotic disturbance, mood disturbance, and anxiety Plan: Continue memantine and donepezil, goes to adult day program 4 times a week (4) Dyslipidemia: Code(s): E78.5 - Hyperlipidemia, unspecified Plan: Reviewed recent fasting lipid profile with patient with levels within normal limit . Continue atorvastatin 10 mg every other day , in addition to adherence to low-cholesterol diet and regular exercise, at least 30 minutes 3 to 4 times a week. Advised patient to make healthy food choices, eat more fruits, vegetables, whole grains, wild caught fish and low-fat dairy. Limit amount of meat and fried or fatty food products, as well as processed foods and fast foods. Follow-up scheduled with repeat fasting lipid panel in months. (5) Type 2 diabetes mellitus with microalbuminuria: Code(s): E11.29 - Type 2 diabetes mellitus with other diabetic kidney complication; R80.9 - Proteinuria, unspecified Plan: Currently diet controlled, hemoglobin A1c a little higher at 7%. Stressed importance of following her diabetic diet and importance of doing regular exercise. Will start her on losartan 25 mg per tablet taken once a day in a.m., repeat electrolytes, renal function, liver enzymes and hemoglobin A1c in 3 months. Up-to-date with all her vaccines Orders: Orders Hemoglobin A1c 01/23/24 E11.9 - Type 2 diabetes mellitus without complications, E78.5 - Hyperlipidemia, unspecified, F03.90 - Unspecified dementia, unspecified severity, without behavioral disturbance, psychotic disturbance, mood disturbance, and anxiety Comprehensive Arma. Panel Fast 01/23/24 E11.9 - Type 2 diabetes mellitus without complications, E78.5 - Hyperlipidemia, unspecified, F03.90 - Unspecified dementia, unspecified severity, without behavioral disturbance, psychotic disturbance, mood disturbance, and anxiety Lipid Panel 01/23/24 E11.9 - Type 2 diabetes mellitus without complications, E78.5 - Hyperlipidemia, unspecified, F03.90 - Unspecified dementia, unspecified severity, without behavioral disturbance, psychotic disturbance, mood disturbance, and anxiety Medications: New buspirone 5 mg PO TID 90 tabs 0RF F41.1 - Generalized anxiety disorder losartan 25 mg PO DAILY 90 tabs 1RF hydroxyzine HCl 10 mg PO BEDTIME PRN 30 tabs 0RF acute anxiety attacks Coding Level of Care Code Est Pt Prev Care >65y(81023) Diagnoses Annual visit for general adult medical examination with abnormal findings Z00.01 Generalized anxiety disorder F41.1 Vascular dementia without behavioral disturbance, psychotic disturbance, mood disturbance, or anxiety, unspecified dementia severity F01.50 Dementia behavioral or psychological symptom: without behavioral, psychotic, or mood disturbance or anxiety Dementia severity: unspecified severity Dementia type: vascular dementia Dyslipidemia E78.5 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; R80.9 Additional Codes LUZMA-7 Assessment Billing - LUZMA-7 Assessment Tool: LUZMA-7 Assessment [id number] ([id number])
[2023-11-12 10:05] VITALS: BP 122/60; PULSE 65; O2SAT 98; BMI 21.3
== END 2023-11-12 10:45 | disposition home or self-care (01) ==
PROVIDERS: PCP Internal Medicine; Visit Provider Internal Medicine
DX: E11.29 Type 2 diabetes mellitus with other diabetic kidney complication (principal); F01.50 Vascular dementia, unspecified severity, without behavioral disturbance, psychotic disturbance, mood disturbance, and anxiety; F41.1 Generalized anxiety disorder; E78.5 Hyperlipidemia, unspecified; R80.9 Proteinuria, unspecified
CPT/HCPCS: 99213

== ENCOUNTER 2024-02-03 08:44 | Outpatient (REF) | payer MEDICARE, BC, SELFPAY ==
[2024-02-03 10:53] LABS: Alanine Aminotransferase 18 U/L (0-31); Albumin Level 4.2 g/dL (3.5-5.0); Alkaline Phosphatase 90 U/L (39-117); Anion Gap 12 (12-20); Aspartate Amino Transferase 15 U/L (5-31); Bilirubin Total 0.4 mg/dL (0.0-1.0); Blood Urea Nitrogen 15 mg/dL (9-16); Calcium 9.9 mg/dL (8.4-10.2); Carbon Dioxide 27 mmol/L (22-29); Chloride 107 mmol/L (96-108); Cholesterol 141 mg/dL (<200); Estimated Average Glucose 154 mg/dL; Estimated Glomerular Filt Rate > 60; Glucose Fasting 141 mg/dL (60-99); HDL Cholesterol 49 mg/dL (>40); LDL Cholesterol Calculated 78 mg/dL (<100); Potassium 4.2 mmol/L (3.3-5.1); Sodium 142 mmol/L (135-145); Total Protein 6.9 g/dL (6.5-8.0); Triglycerides 70 mg/dL (<150)
== END 2024-02-03 08:45 | disposition home or self-care (01) ==
LOC: HO.HMGCLDS 08:44
PROVIDERS: PCP Internal Medicine; Visit Provider Internal Medicine
DX: E11.9 Type 2 diabetes mellitus without complications (principal); F03.90 Unspecified dementia, unspecified severity, without behavioral disturbance, psychotic disturbance, mood disturbance, and anxiety; E78.5 Hyperlipidemia, unspecified
CPT/HCPCS: 36415; 80053; 80061; 83036

== ENCOUNTER 2024-02-03 09:02 | Outpatient (AMB) | payer MEDICARE, BC, SELFPAY ==
[2024-02-03 09:28] VITALS: BP 128/78; PULSE 75; O2SAT 97; BMI 20.6
--- NOTE | 2024-02-03 09:28 | A.OFFPC_ITS ---
Vital Signs 02/03/24 09:28 Height 5 ft 4 in Weight 120 lb BMI 20.6 BP 128/78 Blood Pressure Location Lt brachial Position Sitting Pulse 75 Pulse Source Pulse Oximeter Pulse Oximetry (%) 97 Oxygen Delivery Method Room Air Intake Visit Reasons: F [facility] Intake Note: Pt is here today for Hospital follow up visit. Notes are scanned from [facility]. Allergies lisinopril Adverse Reaction (Unknown, Verified 02/03/24 10:02) cough Medication List - Last Reconciled 02/03/24 by Cristela Brand MD acetaminophen (Tylenol) 500 mg PO QID atorvastatin 10 mg PO Q OTHER DAY buspirone 5 mg PO BID cholecalciferol (vitamin D3) 2,000 units PO DAILY donepezil 10 mg PO DAILY hydroxyzine HCl 10 mg PO BEDTIME PRN losartan 25 mg PO DAILY melatonin 6 mg PO BEDTIME memantine 10 mg PO QAM tramadol 50 mg PO DAILY PRN vitamin B complex 1 tab PO DAILY Tobacco use date assessed: 02/03/24 Dental Screening Dental Screen Date: 11/12/23 HPI [facility] HPI Details 83-year-old lady with history of dementi a ghy-hrvrftp-ykhpzxpgi diabetes mellitus, hypertension, here today for follow-up after recent ER visit. Initially was thought to have STEMI as patient was hypotensive confused. EKG however at the ER revealed normal sinus rhythm with no acute ischemic changes, stat bedside echo revealed no wall motion abnormalities. Labs drawn and chest x-ray were all unremarkable It was felt that her altered mental status was most likely due to dehydration, she was then IV fluids and discharged home . At present patient states that she has been feeling well, no new complaints . [facility] Medical History Type 2 diabetes mellitus with microalbuminuria History of COVID-19 Generalized anxiety disorder Chronic low back pain Osteoarthritis Dementia Dyslipidemia Surgical History Hx laparoscopic cholecystectomy History of appendectomy Family History Mother HTN (hypertension) Hyperlipidemia Diabetes mellitus Son No problems noted. Son No problems noted. Daughter No problems noted. Daughter No problems noted. Social History Housing: Other Housing Other:: Lives with daughter Teto Hurtado Tobacco Use Status: Former Tobacco user Years Smoked: 30 yrs e-Cigarette/Vaping Use: Never Used Second Hand Smoke Exposure: No service: No Current occupational status: retired Cognitive needs: No Hearing needs: No Vision needs: Yes Questionnaire PHQ-9 Over the last 2 weeks, how often have you been bothered by any of the following problems? Depression Screening Interpretation: Negative Depression Screening Done: Yes Source: Developed by Drs. Stanley Poe, Ann Donovan, Juan Wolf and colleagues, with an educational fercho from [employer]. Thrive Questionnaire Date Thrive assessed: 11/12/23 LUZMA-7 AMB Questionnaire LUZMA-7 Date LUZMA - 7 assessed: 05/11/23 Source: Developed by Drs. Stanley Poe, Ann Donovan, Juan Wolf and colleagues, with an educational fercho from [employer]. Review of Systems Const Denies fever(s), Denies headache(s) and Denies weakness Eyes Denies change in vision ENT Denies dizziness, Denies headache(s), Denies nasal congestion, Denies nasal discharge and Denies sore throat Card Denies chest pain, Denies lightheadedness, Denies palpitations and Denies dyspnea Resp Denies chest congestion, Denies cough, Denies dyspnea and Denies wheezing GI Denies abdominal pain, Denies change in bowel habits and Denies heartburn Denies hematuria, Denies urinary frequency, Denies dysuria and Denies urinary urgency Musc Reports as per HPI, Denies radiating pain into limb and Reports stiffness Skin/Breast Denies breast swelling, Denies breast pain and Denies rash Neuro Denies dizziness, Denies headache(s), Reports memory loss and Denies weakness Psych Reports as per HPI and Reports memory loss Endo Denies polydipsia, Denies polyuria and Denies palpitations Colin/Lymph Denies easy bruising Aller/Immun Denies seasonal rhinorrhea and Denies wheezing Physical exam (Primary Care) Vital Signs: Last Vital Signs Pulse 75 02/03/24 09:28 BP 128/78 02/03/24 09:28 Pulse Ox 97 02/03/24 09:28 Oxygen Delivery Method Room Air 02/03/24 09:28 BMI result Body Mass Index 20.6 Tobacco/Smoking Status: Tobacco use Status Tobacco use date assessed 02/03/24 02/03/24 09:36 Patient Tobacco Use Status Former Tobacco user 02/03/24 09:31 e-Cigarette/Vaping Use Never Used 02/03/24 09:31 Depression Screening Interpretation: Negative Thrive Assessment: Date of Thrive Assessment Date Thrive assessed 11/12/23 02/03/24 09:31 Const Other: Alert oriented x3, no acute distress noted ambulatory normal, daughter accompanying patient FER Mouth: Normal oral and palatal mucosa present, oropharynx normal and moist mucous membranes Eyes General: appearance normal, both eyes and all related structures Neck Other: Supple with no lymphadenopathy, thyroid gland nonpalpable Resp Auscultation: clear to auscultation bilaterally Cardio Other: S1-S2 present regular rate and rhythm GI Other: Normal bowel sounds, soft, nontender with no mass palpated General: Yes no CVA tenderness Back/Spine/Pelvis Back: no CVA tenderness Skin General skin exam: no rashes or lesions noted Neuro General: gait normal, moves all extremities and no focal motor deficits Extrem General: Yes full ROM, Yes no joint enlargement, Yes no clubbing, cyanosis or edema and Yes normal gait Psych Appearance: grossly normal and well kempt Mental Status: mental status grossly normal Speech and movement: Slowed speech present (Psych) Affect: normal affect Attitude: cooperative Assessment and Plan Assessment & Plan (1) Dementia: Code(s): F03.90 - Unspecified dementia, unspecified severity, without behavioral disturbance, psychotic disturbance, mood disturbance, and anxiety Qualifiers: Dementia behavioral or psychological symptom: without behavioral, psychotic, or mood disturbance or anxiety Dementia severity: unspecified severity Dementia type: vascular dementia Qualified Code(s): F01.50 - Vascular dementia, unspecified severity, without behavioral disturbance, psychotic disturbance, mood disturbance, and anxiety Plan: Continue donepezil and memantine (2) Osteoarthritis: Code(s): M19.90 - Unspecified osteoarthritis, unspecified site Plan: Takes Tylenol 500 mg 1 tablet every 6 hours as needed pain. Wheelchair prescribed (3) Dyslipidemia: Code(s): E78.5 - Hyperlipidemia, unspecified Plan: Continue atorvastatin 10 mg every other day (4) Generalized anxiety disorder: Code(s): F41.1 - Generalized anxiety disorder Plan: Currently on buspirone 5 mg 1 tablet twice a day (5) Type 2 diabetes mellitus with microalbuminuria: Code(s): E11. - Type 2 diabetes mellitus with other diabetic kidney complication; R80.9 - Proteinuria, unspecified Plan: Reminded to healthy eating habits, avoidance of lot of simple carbs and sugars. Continue staying active Orders: Orders Alanine Aminotransferase 06/24/24. - Type 2 diabetes mellitus with other diabetic kidney complication, R80.9 - Proteinuria, unspecified, F41.1 - Generalized anxiety disorder, M54.50 - Low back pain, unspecified, G89.29 - Other chronic pain, F01.50 - Vascular dementia, unspecified severity, without behavioral disturbance, psychotic disturbance, mood disturbance, and anxiety, E78.5 - Hyperlipidemia, unspecified Basic Metabolic Panel Fasting 06/24/24. - Type 2 diabetes mellitus with other diabetic kidney complication, R80.9 - Proteinuria, unspecified, F41.1 - Generalized anxiety disorder, M54.50 - Low back pain, unspecified, G89.29 - Other chronic pain, F01.50 - Vascular dementia, unspecified severity, without behavioral disturbance, psychotic disturbance, mood disturbance, and anxiety, E78.5 - Hyperlipidemia, unspecified Vitamin D 25-OH Total 06/24/24. - Type 2 diabetes mellitus with other diabetic kidney complication, R80.9 - Proteinuria, unspecified, F41.1 - Generalized anxiety disorder, M54.50 - Low back pain, unspecified, G89.29 - Other chronic pain, F01.50 - Vascular dementia, unspecified severity, without behavioral disturbance, psychotic disturbance, mood disturbance, and anxiety, E78.5 - Hyperlipidemia, unspecified Hemoglobin A1c 06/24/24. - Type 2 diabetes mellitus with other diabetic kidney complication, R80.9 - Proteinuria, unspecified, F41.1 - Generalized anxiety disorder, M54.50 - Low back pain, unspecified, G89.29 - Other chronic pain, F01.50 - Vascular dementia, unspecified severity, without behavioral disturbance, psychotic disturbance, mood disturbance, and anxiety, E78.5 - Hyperlipidemia, unspecified Lipid Panel 06/24/24. - Type 2 diabetes mellitus with other diabetic kidney complication, R80.9 - Proteinuria, unspecified, F41.1 - Generalized anxiety disorder, M54.50 - Low back pain, unspecified, G89.29 - Other chronic pain, F01.50 - Vascular dementia, unspecified severity, without behavioral disturbance, psychotic disturbance, mood disturbance, and anxiety, E78.5 - Hyperlipidemia, unspecified Aspartate Amino Transferase 06/24/24 E11.29 - Type 2 diabetes mellitus with other diabetic kidney complication, R80.9 - Proteinuria, unspecified, F41.1 - Generalized anxiety disorder, M54.50 - Low back pain, unspecified, G89.29 - Other chronic pain, F01.50 - Vascular dementia, unspecified severity, without behavioral disturbance, psychotic disturbance, mood disturbance, and anxiety, E78.5 - Hyperlipidemia, unspecified Vitamin B12 and Folate 06/24/24 E11.29 - Type 2 diabetes mellitus with other diabetic kidney complication, R80.9 - Proteinuria, unspecified, F41.1 - Generalized anxiety disorder, M54.50 - Low back pain, unspecified, G89.29 - Other chronic pain, F01.50 - Vascular dementia, unspecified severity, without behavioral disturbance, psychotic disturbance, mood disturbance, and anxiety, E78.5 - Hyperlipidemia, unspecified Medications: New [Wheelchair] As directed 1 ea 0RF gait instability NS F01.50 - Vascular dementia, unspecified severity, without behavioral disturbance, psychotic disturbance, mood disturbance, and anxiety, M54.50 - Low back pain, unspecified, G89.29 - Other chronic pain, M19.90 - Unspecified osteoarthritis, unspecified site Coding Level of Care Code Est Pt Level 4 (74659) Diagnoses Vascular dementia without behavioral disturbance, psychotic disturbance, mood disturbance, or anxiety, unspecified dementia severity F01.50 Dementia behavioral or psychological symptom: without behavioral, psychotic, or mood disturbance or anxiety Dementia severity: unspecified severity Dementia type: vascular dementia Osteoarthritis M19.90 Dyslipidemia E78.5 Generalized anxiety disorder F41.1 Type 2 diabetes mellitus with microalbuminuria .; R80.9
== END 2024-02-03 12:53 | disposition home or self-care (01) ==
PROVIDERS: PCP Internal Medicine; Visit Provider Internal Medicine
DX: E11.29 Type 2 diabetes mellitus with other diabetic kidney complication (principal); F01.50 Vascular dementia, unspecified severity, without behavioral disturbance, psychotic disturbance, mood disturbance, and anxiety; M19.90 Unspecified osteoarthritis, unspecified site; E78.5 Hyperlipidemia, unspecified; F41.1 Generalized anxiety disorder; R80.9 Proteinuria, unspecified
CPT/HCPCS: 99214

== ENCOUNTER 2024-08-12 10:35 | Outpatient (AMB) | payer MEDICARE, BC, SELFPAY ==
--- NOTE | 2024-08-12 10:31 | A.OFFPC_ITS ---
Intake Visit Reasons: discuss rx for w/c iphone [phone] Allergies lisinopril Adverse Reaction (Unknown, Verified 08/12/24 10:40) cough Medication List - Last Reconciled 08/12/24 by Cristela Brand MD acetaminophen (Tylenol) 500 mg PO QID atorvastatin 10 mg PO Q OTHER DAY buspirone 5 mg PO BID cholecalciferol (vitamin D3) 2,000 units PO DAILY donepezil 10 mg PO DAILY hydroxyzine HCl 10 mg PO BEDTIME PRN losartan 25 mg PO DAILY magnesium gluconate 120 mg PO DAILY melatonin 6 mg PO BEDTIME memantine 10 mg PO BID tramadol 50 mg PO DAILY PRN vitamin B complex 1 tab PO DAILY [Wheelchair As directed NS] Tobacco use date assessed: 08/12/24 Fall risk assessment: 1 Fall in past year Last assessed Fall Risk: 08/12/24 Dental Screening Dental Screen Date: 08/12/24 Did you have a dental visit in the last 12 months?: No Did you have a dental problem in the last 6 months where you did not have access to dental care?: No Was dental information given to patient?: Patient declined HPI discuss rx for w/c iphone [phone] HPI Details - 83-year-old female with diabetes lucila itus, dyslipidemia, dementia, osteoarthritis with chronic low back pain, presenting for assessment and assistance in obtaining suitable mobility aids, specifically a wheelchair, due to existing medical conditions. - Diagnosed with dementia, impacting cog nitive functions and mobility independence. - Suffers from osteoarthritis, contribut ing to reduced mobility and reliance on supportive devices. - Experiences significant lower back shayy n, further limiting mobility and necessitating additional support, particularly for navigating stairs. - patient's family is building a 12-foot ramp constructed for safe wheelchair accessibility to the house. - Utilize a gat belt for safe support wh en descending stairs until the ramp is completed. - continues to participate in the Adult daycare program to maintain social and physical activity. Needs to also use her wheelchair when going to her program. Patient's daughter states that there is always somebody there to push her wheelchair, as patient has difficulty maneuvering it on her own Patient was informed and verbally consented to the use of an ambient scribe for clinic note documentation during this visit. [facility] Medical History Type 2 diabetes mellitus with microalbuminuria History of COVID-19 Generalized anxiety disorder Chronic low back pain Osteoarthritis Dementia Dyslipidemia Surgical History Hx laparoscopic cholecystectomy History of appendectomy Family History Mother HTN (hypertension) Hyperlipidemia Diabetes mellitus Son No problems noted. Son No problems noted. Daughter No problems noted. Daughter No problems noted. Social History Housing: Other Housing Other:: Lives with daughter Teto Patient Tobacco Use Status: Former Tobacco user Years Smoked: 30 yrs e-Cigarette/Vaping Use: Never Used Second Hand Smoke Exposure: No service: No Current occupational status: retired Cognitive needs: No Hearing needs: No Vision needs: Yes Questionnaire Thrive Questionnaire Date Thrive assessed: 11/12/23 LUZMA-7 AMB Questionnaire LUZMA-7 Date LUZMA - 7 assessed: 05/11/23 Source: Developed by Drs. Stanley Poe, Ann Donovan, Juan Wolf and colleagues, with an educational fercho from [employer]. Review of Systems Const Denies fever(s) and Denies headache(s) Eyes Denies change in vision ENT Denies dizziness, Denies headache(s), Denies nasal congestion, Denies nasal discharge, Reports disequilibrium and Denies sore throat Card Denies chest pain, Denies lightheadedness, Denies palpitations and Denies dyspnea Resp Denies chest congestion, Denies cough, Denies dyspnea and Denies wheezing GI Denies abdominal pain, Denies change in bowel habits and Denies heartburn Denies hematuria, Denies urinary frequency, Denies dysuria and Denies urinary urgency Musc Reports as per HPI, Reports abnormal gait, Denies radiating pain into limb and Reports stiffness Neuro Reports as per HPI, Reports abnormal gait, Denies dizziness, Denies headache(s), Denies seizure-like activity and Reports disequilibrium Psych Reports no additional complaints Endo Denies polydipsia, Denies polyuria and Denies palpitations Colin/Lymph Denies easy bruising Aller/Immun Denies seasonal rhinorrhea and Denies wheezing Physical exam (Primary Care) Tobacco/Smoking Status: Tobacco use Status Tobacco use date assessed 08/12/24 08/12/24 10:34 Patient Tobacco Use Status Former Tobacco user 08/12/24 10:34 e-Cigarette/Vaping Use Never Used 08/12/24 10:34 Thrive Assessment: Date of Thrive Assessment Date Thrive assessed 11/12/23 08/12/24 10:34 Telehealth Telehealth Telehealth Platform: [employer] Location of provider rendering services: practice address Location of patient: address on file Patient Identification confirmed using: Name, : Yes Telehealth method: video Patient verbally consented to treatment: Yes Patient verbally consented to billing insurance company: Yes Patient informed of any privacy concerns related to visit: Yes Minutes spent on Phone/Video with Pt.: 15 Coding Level of Care Code Tele Est Pt Level 3 (92181) Diagnoses Chronic bilateral low back pain without sciatica M54.50; G89.29 Back pain laterality: bilateral Sciatica presence: without sciatica Osteoarthritis M19.90 Vascular dementia without behavioral disturbance, psychotic disturbance, mood disturbance, or anxiety, unspecified dementia severity F01.50 Dementia behavioral or psychological symptom: without behavioral, psychotic, or mood disturbance or anxiety Dementia severity: unspecified severity Dementia type: vascular dementia Assessment & Plan Assessment & Plan (1) Chronic low back pain: Code(s): M54.50 - Low back pain, unspecified; G89.29 - Other chronic pain Category: Medical Qualifiers: Back pain laterality: bilateral Sciatica presence: without sciatica Qualified Code(s): M54.50 - Low back pain, unspecified; G89.29 - Other chronic pain (2) Osteoarthritis: Code(s): M19.90 - Unspecified osteoarthritis, unspecified site Category: Medical (3) Dementia: Code(s): F03.90 - Unspecified dementia, unspecified severity, without behavioral disturbance, psychotic disturbance, mood disturbance, and anxiety Category: Medical Qualifiers: Dementia behavioral or psychological symptom: without behavioral, psychotic, or mood disturbance or anxiety Dementia severity: unspecified severity Dementia type: vascular dementia Qualified Code(s): F01.50 - Vascular dementia, unspecified severity, without behavioral disturbance, psychotic disturbance, mood disturbance, and anxiety Plan - Use a wheelchair primarily for outdoor mobility. - Allow a caregiver to assist with wheelchair movement as needed. - Contact the office through the portal for any required documentation or additional inquiries pertaining to mobility aids. - Look into alternative funding options to cover the expenses of obtaining a wheelchair through Medicare or Medicaid. - Maintain regular involvement in adult daycare activities to ensure continued social and ambulatory engagement.
--- OUTSIDE RECORDS SUMMARY | 2024-08-12 10:57 | XMS_ITS ---
Author Name [facility] Organization Unknown Results Test Name/Text Value Interpretation Date Range Source RBC 0-2 Normal [id number] 0 - 2 [facility] COLOR OF URINE Yellow Normal [id number] - [facility] BACTERIA None Seen Normal [id number] - [facility] LEUKOCYTE ESTERASE Moderate Abnormal [id number] - [facility] EPITHELIAL CELLS None Seen Normal [id number] - [facility] PH OF URINE 6 Normal [id number] 5 - 8 [facility] KETONES URINE Negative Normal [id number] - [facility] UROBILINOGEN, URINE 0.2EU/dL Normal [id number] 0.2 - 1 [facility] NITRITE Negative Normal [id number] - [facility] GLUCOSE QUAL Negative Normal [id number] - [facility] BILIRUBIN, URINE Negative Normal [id number] - [facility] CLARITY OF URINE Clear Normal [id number] - [facility] PROTEIN QUAL Negative Normal [id number] - [facility] HEMOGLOBIN, URINE Negative Normal [id number] - [facility] WBC 0-5 Normal [id number] 0 - 5 [facility] SYSMEX CASTS 0-2 Normal [id number] - [facility] SPECIFIC GRAVITY 1.015 Normal [id number] - [facility] RBC DISTRIBUTION WIDTH 12.8% Normal [id number] 11.6 - 14.8 [facility] AUTO NRBC % 0% Normal [id number] 0 - [address] [facility] [address]. 4.210*3/uL Normal [id number] 1.4 - 6.[address] [facility] [address] 0.510*3/uL Normal [id number] 0.2 - 0.8 [facility] MCHC 32.1g/dL Normal [id number] 32 - 36 [facility] MCH 30pg Normal [id number] 26 - 34 [facility] IMMATURE GRANULOCYTE % 0.3% Normal [id number] 0 - 0.6 [facility] EOSINOPHIL % 1.3% Normal [id number] 0 - 6 [facility] [address] 0.110*3/uL Normal [id number] 0 - 0 .2 [facility] MCV 93.4fL Normal [id number] 80 - 100 [facility] PLATELET COUNT 60508*3/uL Normal [id number] 150 - 440 [facility] BASOPHILS % 0.7% Normal [id number] 0 - [address] [facility] [address]. 1.910*3/uL Normal [id number] 0.7 - 4.[address] [facility] [address] 0.110*3/uL Normal [id number] 0 - 0.3 [facility] HEMATOCRIT 41.1% Normal [id number] 35 - 47 [facility] WHITE CELL COUNT 6.810*3/uL Normal [id number] 3.6 - 11 [facility] RED CELL COUNT 4.410*6/???L Normal [id number] 3.8 - 5.2 [facility] MONOCYTE % 7.4% Normal [id number] 4 - 12 [facility] NEUTROPHIL % 62% Normal [id number] 40 - 70 [facility] HEMOGLOBIN 13.2g/dL Normal [id number] 12 - 16 [facility] LYMPHOCYTE % 28.3% Normal [id number] 20 - 50 [facility] CREATININE 0.9mg/dL Normal [id number] 0.6 - 1.2 [facility] SODIUM 143mmol/L Normal [id number] 137 - 144 [facility] CHLORIDE 108mmol/L Normal [id number] 100 - 111 [facility] CALCIUM, TOTAL 9.8mg/dL Normal [id number] 8.4 - 10.2 [facility] AST (SGOT) 15U/L Below low normal [id number] 17 - 35 [facility] UREA NITROGEN 23mg/dL Normal [id number] 8 - 24 [facility] ALBUMIN, AUTOMATED 4.3g/dL Normal [id number] 3.8 - 5. 3 [facility] GLUCOSE 134mg/dL Normal [id number] 70 - 200 [facility] BICARBONATE 28mmol/L Normal [id number] 23 - 32 [facility] POTASSIUM 4.4mmol/L Normal [id number] 3.6 - 5.1 [facility] GLOMERULAR FILTRATION RATE ML/MIN/1.73 SQ M.PREDICTED 63mL/min/1.73m*2 Normal [id number] 60 - [facility] ALT (SGPT) 16U/L Normal [id number] 8 - 39 [facility] PROTEIN TOTAL 6.8g/dL Normal [id number] 6.2 - 8.1 [facility] BILIRUBIN, TOTAL 0.5mg/dL Normal [id number] 0.1 - 1.2 [facility] ALKALINE PHOSPHATASE 93U/L Normal [id number] 39 - 1 13 [facility] ANION GAP 7mmol/L Normal [id number] 3 - 11 [facility] TROPONIN I 0.01ng/mL Normal [id number] - [facility] RBC 0-2 Normal [id number] 0 - 2 [facility] COLOR OF URINE Yellow Normal [id number] - [facility] BACTERIA None Seen Normal [id number] - [facility] LEUKOCYTE ESTERASE Moderate Abnormal [id number] - [facility] EPITHELIAL CELLS None Seen Normal [id number] - [facility] PH OF URINE 6 Normal [id number] 5 - 8 [facility] KETONES URINE 15mg/dL Abnormal [id number] - [facility] UROBILINOGEN, URINE 1EU/dL Normal [id number] 0.2 - 1 [facility] NITRITE Negative Normal [id number] - [facility] GLUCOSE QUAL Negative Normal [id number] - [facility] BILIRUBIN, URINE Negative Normal [id number] - [facility] CLARITY OF URINE Clear Normal [id number] - [facility] PROTEIN QUAL 30mg/dL Abnormal [id number] - [facility] HEMOGLOBIN, URINE Negative Normal [id number] - [facility] WBC >50 Abnormal [id number] 0 - 5 [facility] SYSMEX CASTS 3-5 Normal [id number] - [facility] SPECIFIC GRAVITY 1.02 Normal [id number] - [facility] RBC DISTRIBUTION WIDTH 12.9% Normal [id number] 11.6 - 14.8 [facility] AUTO NRBC % 0% Normal [id number] 0 - [address] [facility] [address]. 3.710*3/uL Normal [id number] 1.4 - 6.[address] [facility] [address] 0.510*3/uL Normal [id number] 0.2 - 0.8 [facility] MCHC 32.1g/dL Normal [id number] 32 - 36 [facility] MCH 29.8pg Normal [id number] 26 - 34 [facility] IMMATURE GRANULOCYTE % 0.1% Normal [id number] 0 - 0.6 [facility] EOSINOPHIL % 1.5% Normal [id number] 0 - 6 [facility] [address] 0.110*3/uL Normal [id number] 0 - 0 .2 [facility] MCV 92.9fL Normal [id number] 80 - 100 [facility] PLATELET COUNT 65055*3/uL Normal [id number] 150 - 440 [facility] BASOPHILS % 1% Normal [id number] 0 - [address] [facility] [address]. 2.310*3/uL Normal [id number] 0.7 - 4.[address] [facility] [address] 0.110*3/uL Normal [id number] 0 - 0.3 [facility] HEMATOCRIT 39% Normal [id number] 35 - 47 [facility] WHITE CELL COUNT 6.710*3/uL Normal [id number] 3.6 - 11 [facility] RED CELL COUNT 4.210*6/???L Normal [id number] 3.8 - 5.2 [facility] MONOCYTE % 7.3% Normal [id number] 4 - 12 [facility] NEUTROPHIL % 55.2% Normal [id number] 40 - 70 [facility] HEMOGLOBIN 12.5g/dL Normal [id number] 12 - 16 [facility] LYMPHOCYTE % 34.9% Normal [id number] 20 - 50 [facility] INR 1ratio Normal [id number] 0.9 - 1.1 [facility] PROTHROMBIN TIME (PT) 11.7seconds Normal [id number] 10.4 - 13 [facility] CREATININE 0.8mg/dL Normal [id number] 0.6 - 1.2 [facility] POTASSIUM 4.6mmol/L Normal [id number] 3.6 - 5.1 [facility] BICARBONATE 27mmol/L Normal [id number] 23 - 32 [facility] GLOMERULAR FILTRATION RATE ML/MIN/1.73 SQ M.PREDICTED 73mL/min/1.73m*2 Normal [id number] 60 - [facility] SODIUM 143mmol/L Normal [id number] 137 - 144 [facility] CHLORIDE 108mmol/L Normal [id number] 100 - 111 [facility] CALCIUM, TOTAL 9.7mg/dL Normal [id number] 8.4 - 10.2 [facility] UREA NITROGEN 23mg/dL Normal [id number] 8 - 24 [facility] ANION GAP 8mmol/L Normal [id number] 3 - 11 [facility] GLUCOSE 172mg/dL Normal [id number] 70 - 200 [facility] TROPONIN I 0.01ng/mL Normal [id number] - [facility]
== END 2024-08-12 12:03 | disposition home or self-care (01) ==
LOC: HO.HMCC 10:35
PROVIDERS: PCP Internal Medicine; Visit Provider Internal Medicine
DX: M54.50 Low back pain, unspecified (principal); G89.29 Other chronic pain; M19.90 Unspecified osteoarthritis, unspecified site; F01.50 Vascular dementia, unspecified severity, without behavioral disturbance, psychotic disturbance, mood disturbance, and anxiety

== ENCOUNTER → 2024-08-12 10:35 | Outpatient (BNVA) | payer MEDICARE, BC, SELFPAY | PROVIDERS: PCP Internal Medicine; Visit Provider Internal Medicine ==

== ENCOUNTER 2024-09-08 08:42 | Outpatient (REF) | payer MEDICARE, SELFPAY ==
[2024-09-08 10:57] LABS: Estimated Average Glucose 148 mg/dL; Hemoglobin A1C 187.5108 umol/L; Hemoglobin A1c % 6.8 % (<6.0); Total Hemoglobin (HGBA1C) 3718.1651 umol/L
[2024-09-08 11:06] LABS: Alanine Aminotransferase 21 U/L (0-31); Anion Gap 9 (12-20); Aspartate Amino Transferase 21 U/L (5-31); Blood Urea Nitrogen 18 mg/dL (9-16); Calcium 9.8 mg/dL (8.4-10.2); Carbon Dioxide 29 mmol/L (22-29); Chloride 109 mmol/L (96-108); Cholesterol 138 mg/dL (<200); Estimated Glomerular Filt Rate > 60; Glucose Fasting 121 mg/dL (60-99); HDL Cholesterol 44 mg/dL (>40); LDL Cholesterol Calculated 68 mg/dL (<100); Potassium 4.1 mmol/L (3.3-5.1); Sodium 143 mmol/L (135-145); Triglycerides 130 mg/dL (<150)
[2024-09-08 11:26] LABS: Folate 10.2 ng/mL (> or = 4.0); Vitamin B12 483 pg/mL (200-900)
[2024-09-08 11:27] LABS: Vitamin D 25-OH Total 31.7 ng/mL (>30)
== END 2024-09-08 08:43 | disposition home or self-care (01) ==
LOC: HO.HMGCLDS 08:42
PROVIDERS: PCP Internal Medicine; Visit Provider Internal Medicine
DX: E11.29 Type 2 diabetes mellitus with other diabetic kidney complication (principal); R80.9 Proteinuria, unspecified; F41.1 Generalized anxiety disorder; M54.50 Low back pain, unspecified; G89.29 Other chronic pain; F01.50 Vascular dementia, unspecified severity, without behavioral disturbance, psychotic disturbance, mood disturbance, and anxiety; E78.5 Hyperlipidemia, unspecified
CPT/HCPCS: 36415; 80048; 80061; 82306; 82607; 82746; 83036; 84450; 84460

== ENCOUNTER 2024-10-20 11:26 | Outpatient (AMB) | payer MEDICARE, SELFPAY ==
[2024-10-20 11:32] VITALS: BP 110/74; PULSE 60; RESP 16; TEMP 36.6; O2SAT 96; BMI 20.9
--- NOTE | 2024-10-20 11:32 | MHC.PC.OV ---
Vital Signs 10/20/24 11:32 Height 5 ft 4 in Weight 122 lb BMI 20.9 BP 110/74 Blood Pressure Location Lt brachial Position Sitting Respiration 16 Pulse 60 Pulse Source Pulse Oximeter Temp 97.8 F Temp Source Oral Pulse Oximetry (%) 96 Oxygen Delivery Method Room Air Intake Visit Reasons: syncope Intake Note: Pt is here today f/u ER syncope Allergies lisinopril Adverse Reaction (Unknown, Verified 10/20/24 11:42) cough Medication List - Last Reconciled 10/20/24 by Cristela Brand MD acetaminophen (Tylenol) 500 mg PO ONCE atorvastatin 10 mg PO Q OTHER DAY buspirone 5 mg PO BID cholecalciferol (vitamin D3) 2,000 units PO DAILY donepezil 10 mg PO DAILY hydroxyzine HCl 10 mg PO BEDTIME PRN losartan 25 mg PO DAILY magnesium glycinate mg PO melatonin 6 mg PO BEDTIME memantine 10 mg PO BID tramadol 50 mg PO DAILY PRN vitamin B complex 1 tab PO DAILY [Wheelchair As directed NS] Tobacco use date assessed: 10/20/24 Fall risk assessment: 1 Fall in past year Last assessed Fall Risk: 10/20/24 Dental Screening Dental Screen Date: 10/20/24 HPI syncope HPI Details 83-year-old lady with past medical history significant for diabetes mellitus, generalized anxiety disorder, dementia, osteoarthritis, and dyslipidemia, here today for follow-up after recent ER visit 09/08/2024 for a syncopal episode. Patient was at home when that happened with her daughter who was bring her to the bathroom and was found to have a syncopal episode after she used the toilet lasting only a few seconds. There was no fall what she was noted to be slumped down and daughter was able to get her up and walk her to a chair EMS was called and assessed patient, finding blood pressure in the high 90s which gradually improved to low 100s with no intervention. At that time her heart rate remains in the 60s. Her pulse ox was 95% on room air. Was then brought to the ER EKG showed early repolarization changes but no evidence of STEMI. Bedside echo showed no distinct wall motion abnormalities. Acute coronary syndrome was ruled out in labs done at the ER were unremarkable. Diagnosis was arrived as of vasovagal syncope, and discharged home. At present patient starter states that her mom has been stable, has not had any further episodes. She prepares her meals and mom has been eating well. Her daughter however states that her mom still has recurrent episodes of crying spells, no triggers, currently taking buspirone 5 mg 1 tablet twice a day which does not seem to be helping as much anymore in controlling her anxiety attacks. [facility] Medical History (Updated 10/20/24 @ 12:12 by Cristela Brand MD) Vasovagal syncope Type 2 diabetes mellitus with microalbuminuria History of COVID-19 Generalized anxiety disorder Chronic low back pain Osteoarthritis Dementia Dyslipidemia Surgical History Hx laparoscopic cholecystectomy History of appendectomy Family History Mother HTN (hypertension) Hyperlipidemia Diabetes mellitus Son No problems noted. Son No problems noted. Daughter No problems noted. Daughter No problems noted. Social History Housing: Other Housing Other:: Lives with daughter Teto Patient Tobacco Use Status: Former Tobacco user Years Smoked: 30 yrs e-Cigarette/Vaping Use: Never Used Second Hand Smoke Exposure: No service: No Current occupational status: retired Cognitive needs: No Hearing needs: No Vision needs: Yes Questionnaire PHQ-9 Over the last 2 weeks, how often have you been bothered by any of the following problems? Depression Screening Interpretation: Negative Depression Screening Done: Yes Source: Developed by Drs. Stanley Poe, Ann Donovan, Juan Wolf and colleagues, with an educational fercho from [employer]. Thrive Questionnaire Date Thrive assessed: 11/12/23 AUDIT C Alcohol Use Questionnaire (AUDIT-C) 3. How often do you have six or more drinks on one occasion?: Never Total Score: 0 LUZMA-7 AMB Questionnaire LUZMA-7 Date LUZMA - 7 assessed: 10/20/24 Feeling nervous, anxious, or on edge: 1 = Several days Not being able to stop or control worryin = Several days Worrying too much about different things: 2 = More than half the days Trouble relaxin = Several days Being so restless that it is hard to sit still: 0 = Not at all Becoming easily annoyed or irritable: 0 = Not at all Feeling afraid as if something awful might happen: 0 = Not at all Total LUZMA-7 score (0-4 normal; 5-9 mild; 10-14 moderate; 15-21 severe): 5 Source: Developed by Drs. Stanley Poe, Ann Donovan, Juan Wolf and colleagues, with an educational fercho from [employer]. LUZMA-7 Assessment Billing LUZMA-7 Assessment Tool: LUZMA-7 Assessment 02963 Review of Systems Const Details: Most of review of system obtained from daughter, as patient unable to voice her symptoms Denies fever(s) ENT Denies nasal congestion and Denies nasal discharge Card Denies dyspnea Resp Denies cough and Denies dyspnea GI Denies abdominal pain and Denies change in bowel habits Denies hematuria, Denies urinary frequency, Denies dysuria and Denies urinary urgency Musc Reports abnormal gait Neuro Reports abnormal gait and Denies seizure-like activity Endo Denies polydipsia and Denies polyuria Colin/Lymph Denies easy bruising Physical exam (Primary Care) Vital Signs: Last Vital Signs Temp 97.8 F 10/20/24 11:32 Pulse 60 10/20/24 11:32 Resp 16 10/20/24 11:32 BP 110/74 10/20/24 11:32 Pulse Ox 96 10/20/24 11:32 Oxygen Delivery Method Room Air 10/20/24 11:32 BMI result Body Mass Index 20.9 Tobacco/Smoking Status: Tobacco use Status Tobacco use date assessed 10/20/24 10/20/24 11:33 Patient Tobacco Use Status Former Tobacco user 10/20/24 11:33 e-Cigarette/Vaping Use Never Used 10/20/24 11:33 Depression Screening Interpretation: Negative Thrive Assessment: Date of Thrive Assessment Date Thrive assessed 11/12/23 10/20/24 11:33 Const Other: Alert oriented x3, no acute distress noted ambulatory normal, daughter accompanying patient FER Mouth: oropharynx normal and moist mucous membranes Eyes General: appearance normal, both eyes and all related structures Neck Other: Supple with no lymphadenopathy, thyroid gland nonpalpable Resp Auscultation: clear to auscultation bilaterally Cardio Other: S1-S2 present regular rate and rhythm GI Other: Normal bowel sounds, soft, nontender with no mass palpated Skin General skin exam: no rashes or lesions noted Neuro General: moves all extremities and no focal motor deficits Extrem General: Yes full ROM, Yes no joint enlargement and Yes no clubbing, cyanosis or edema Psych Appearance: grossly normal and well kempt Mental Status: other (Oriented to person) Speech and movement: Slowed speech present (Psych) and Other speech and movement exam findings present (Psych) (Paucity of speech) Affect: Blunted affect present Attitude: cooperative Coding Level of Care Code Est Pt Level 4 (50175) Diagnoses Vasovagal syncope R55 Generalized anxiety disorder F41.1 Vascular dementia without behavioral disturbance, psychotic disturbance, mood disturbance, or anxiety, unspecified dementia severity F01.50 Dementia type: vascular dementia Dementia severity: unspecified severity Dementia behavioral or psychological symptom: without behavioral, psychotic, or mood disturbance or anxiety Additional Codes LUZMA-7 Assessment Billing - LUZMA-7 Assessment Tool: LUZMA-7 Assessment 32737 ([id number]) Assessment & Plan Assessment & Plan (1) Vasovagal syncope: Code(s): R55 - Syncope and collapse Category: Medical Plan: Losartan discontinued, monitor blood pressure at home, will see her back for physical exam follow-up in 11/24/2024 (2) Generalized anxiety disorder: Code(s): F41.1 - Generalized anxiety disorder Category: Medical Plan: Change buspirone dose to 5 mg in the morning and 10 mg at night. Prescription refill sent, will see her back for follow-up on 11/24/2024 (3) Dementia: Code(s): F03.90 - Unspecified dementia, unspecified severity, without behavioral disturbance, psychotic disturbance, mood disturbance, and anxiety Category: Medical Qualifiers: Dementia type: vascular dementia Dementia severity: unspecified severity Dementia behavioral or psychological symptom: without behavioral, psychotic, or mood disturbance or anxiety Qualified Code(s): F01.50 - Vascular dementia, unspecified severity, without behavioral disturbance, psychotic disturbance, mood disturbance, and anxiety Plan: Continued on donepezil and memantine Medications: Changed From buspirone 5 mg PO BID 60 tabs 5RF F41.1 - Generalized anxiety disorder To buspirone 5 mg PO TID 90 tabs 5RF F41.1 - Generalized anxiety disorder Discontinued losartan Discontinued Reason: Doctor's Order 25 mg PO DAILY 90 tabs 1RF
--- OUTSIDE RECORDS SUMMARY | 2024-10-20 13:54 | XMS_ITS | Clinical Summary ---
Author Organization [facility] Address [address] [place] [address] Care Team Providers Care Cold Reduction Roller Name Role Phone Cathie Cristela Crawley Primary Care Provider Allergies No known active allergies Medications memantine (NAMENDA) 5 mg tablet Take 5 mg by mouth in the morning and 5 mg before bedtime. Active donepeziL (ARICEPT) 5 mg tablet Take 5 mg by mouth nightly. Active losartan (COZAAR) 25 mg tablet Take 25 mg by mouth in the morning. Active busPIRone (BUSPAR) 5 mg tablet Take 5 mg by mouth in the morning and 5 mg at noon and 5 mg before bedtime. Active atorvastatin (LIPITOR) 10 mg tablet Take 10 mg by mouth in the morning. Active Encounters Date Type Department Care Team Description 09/08/2024 7:24 PM EST - 09/08/2024 11:07 PM EST Emergency [facility] Department of Emergency Services [address] [place] [id number] Nicho Rowan MD Vasovagal syncope (Primary Dx); Chest pain, unspecified; Encounter for screening laboratory testing for severe acute respiratory syndrome coronavirus 2 (SARS-CoV-2); Need for prophylactic chemotherapy Discharge Disposition: Home or Self Care from Last 3 Months Immunizations Name Administration Dates Next Due COVID-19 MRNA AURORA (PFIZER) 02/14/2022 COVID-19 mRNA (PFIZER) 07/12/2021 Covid-19 MRNA PFIZER Bivalent 09/10/2022 Covid-19 Seasonal Vaccine Pfizer 05/14/2023 Social History Tobacco Use Types Packs/Day Years Used Date Smoking Tobacco: Never Smokeless Tobacco: Never Tobacco Cessation:Counseling Given: Not Answered Comments No Sex and Gender Information Value Date Recorded Sex Assigned at Not on file Legal Sex Female 7:58 PM EDT Gender Identity Not on file Sexual Orientation Not on file Last Filed Vital Signs Vital Sign Reading Time Taken Comments Blood Pressure 159/47 09/08/2024 10:40 PM EST Pulse 77 09/08/2024 8:37 PM EST Temperature 35.8 ??C (96.5 ??F) 09/08/2024 10:[address] Respiratory Rate 16 09/08/2024 8:37 PM EST Oxygen Saturation 99% 09/08/2024 8:37 PM EST Inhaled Oxygen Concentration - - Weight 57.2 kg (126 lb) 03/08/2024 9:30 AM EDT Height 162.6 cm (5' 4 ) 03/08/2024 9:30 AM EDT Body Mass Index 21.63 03/08/2024 9:30 AM EDT Plan of Treatment Health Maintenance Due Date Last Done Comments Bone Density Screening 1940 HIV Screening 1940 Medicare Annual Wellness (AWV) 1940 DTaP,Tdap,and Td Vaccines (1 - Tdap) 10/25/1957 Zoster Vaccines (1 of 2) 10/25/1989 Pneumococcal Vaccine, 65+ Years (1 of 1 - PCV) 10/25/2004 COVID-19 Vaccine (5 - season) 2024 05/14/2023, 09/10/2022, 02/14/2022, Additional history exists Influenza Vaccine (#1) 2024 05/19/2023 HPV Vaccines Aged Out No longer eligi ble based on patient's age to complete this topic Hepatitis A Vaccines Aged Out No long er eligible based on patient's age to complete this topic Meningococcal Vaccine Aged Out No shemar jason eligible based on patient's age to complete this topic Procedures Procedure Name Priority Date/Time Associated Diagnosis Comments HIGH SENSITIVITY TROPONIN I STAT 09/08/2024 9:45 PM EST XR CHEST - PA OR AP STAT 09/08/2024 9:02 PM EST ECG 12-LEAD STAT 09/08/2024 7:58 PM EST LIGHT BLUE TOP STAT 09/08/2024 7:50 PM EST RAINBOW DRAW STAT 09/08/2024 7:50 PM EST CORONAVIRUS SARS-COV-2 PCR ([facility]-CEPHE[facility]) Routine 09/08/2024 7:49 PM EST COMPLETE BLOOD COUNT WITH AUTO DIFFERENTIAL STAT 09/08/2024 7:45 PM EST HIGH SENSITIVITY TROPONIN I STAT 09/08/2024 7:45 PM EST BASIC METABOLIC PANEL STAT 09/08/2024 7:45 PM EST COMPLETE BLOOD COUNT AND DIFFERENTIAL STAT 09/08/2024 7:45 PM EST ECG 12-LEAD STAT 09/08/2024 7:30 PM EST from Last 3 Months Results * High Sensitivity Troponin I (09/08/2024 9:45 PM EST) Only the most recent of2 resultswithin the time period is included. high sensitivity Troponin I <3 <=14 ng/L 09/08/2024 10:23 PM EST [facility] Comment:Refer to the high se nsitivity TnI algorithm for further workup Blood Venous blood specimen / Unknown Venipuncture / Unknown 09/08/2024 9:45 PM EST 09/08/2024 9:52 PM EST us Nicho Rowan MD LAB BLOOD ORDERABLES Final Res ult [facility] [address] [place] [address], [place] [phone] * XR chest - pa or ap (09/08/2024 9:02 PM EST) Anatomical Region Laterality Modality Chest Computed Radiogr aphy 09/08/2024 10:3 2 PM EST Impressions 09/09/2024 10:00 AM EST No acute cardiothoracic abnormality. No focal consolidation. Preliminary report dictated by Christi Martinez. ??Reports in preliminary status may not have been reviewed by the Attending Radiologist. Electronic signature on the final report indicates that Greg Currie MD has personally reviewed this examination initially dictated by Christi Martinez. Electronic signature on this final report indicates that Greg Currie MD has personally reviewed this examination Reminder to Patients and Legally Authorized Representatives: Language in this report is designed for medical communication with other treating physicians and clinical practitioners. Please speak with your provider(s) about any questions or concerns related to the content of this report. AF^0 Narrative 09/09/2024 10:00 AM EST EXAMINATION: CHEST RADIOGRAPHS INDICATIONS: Cough, new onset TECHNIQUE: AP views of the chest. COMPARISON: Chest radiograph 03/08/2024 FINDINGS: Diffuse prominence of bronchovascular markings similar prior. No pleural effusion. No pneumothorax. The cardiomediastinal silhouette is within normal limits. Degenerative changes are present within the thoracic spine. Procedure Note Greg Currie MD - 09/09/2024 EXAMINATION: CHEST RADIOGRAPHS INDICATIONS: Cough, new onset TECHNIQUE: AP views of the chest. COMPARISON: Chest radiograph 03/08/2024 FINDINGS: Diffuse prominence of bronchovascular markings similar prior. No pleuraleffusion. No pneumothorax. The cardiomediastinal silhouette is within normal limits. Degenerative changes are present within the thoracic spine. IMPRESSION: No acute cardiothoracic abnormality. No focal consolidation. Preliminary report dictated by Christi Martinez. Reports inpreliminary status may not have been reviewed by the AttendingRadiologist. Electronic signature on the final report indicates that MD Ashlee has personally reviewed this examination initially dictatedby Christi Martinez. Electronic signature on this final report indicates that MD Ashlee has personally reviewed this examination Reminder to Patients and Legally Authorized Representatives: Language in this report is designed for medical communication with othertreating physicians and clinical practitioners. Please speak with your provider(s) about any questions or concernsrelated to the content of this report. AF^0 us Nicho Rowan MD IMG XR PROCEDURES Final Result * ECG 12 lead (09/08/2024 7:58 PM EST) Only the most recent of2 resultswithin the time period is included. 09/08/2024 7:58 PM EST 09/09/2024 7:07 AM EST Narrative [facility] ([facility]) - 09/09/2024 7:07 AM EST Ventricular Rate: 62 BPM Atrial Rate: 62 BPM P-R Interval: 146 ms QRS Duration: 74 ms Q-T Interval: 434 ms QTC Calculation(Bazett): 440 ms P Walcott: 76 degrees R Walcott: 59 degrees T Walcott: 65 degrees Diagnosis: ??Poor data quality, interpretation may be adversely affected Normal sinus rhythm Minimal ??ST elevation, consider early repolarization, pericarditis, or injury Abnormal ECG When compared with ECG of 08-SEP-2024 19:30, Minimal ST elevation is apparent in the inferolateral leads Confirmed by Shad Blair ([id number]) on 09/08/2024 8:01:31 PM Also confirmed by Shad Blair ([id number]), photo editor Kiko Croft ([id number]) ??on 09/09/2024 7:07:05 AM Procedure Note Shad Blair MD - 09/09/2024 Ventricular Rate: 62 BPM Atrial Rate: 62 BPM P-R Interval: 146 ms QRS Duration: 74 ms Q-T Interval: 434 ms QTC Calculation(Bazett): 440 ms P Walcott: 76 degrees R Walcott: 59 degrees T Walcott: 65 degrees Diagnosis: Poor data quality, interpretation may be adversely affected Normal sinus rhythm Minimal ST elevation, consider early repolarization, pericarditis, or injury Abnormal ECG When compared with ECG of 08-SEP-2024 19:30, Minimal ST elevation is apparent in the inferolateral leads Confirmed by Shad Blair ([id number]) on 09/08/2024 8:01:31 PM Also confirmed by Shad Blair ([id number]), photo editor Kiko Croft ([id number])on 09/09/2024 7:07:05 AM us Nicho Rowan MD ECG ORDERABLES Final Result [facility] ([place]USE) [place] [address], [place] * Light blue top (09/08/2024 7:50 PM EST) Extra Tube, Coagulation 09/08/2024 7:59 PM EST [facility] Blood Venous blood specimen / Unknown Venipuncture / Unknown 09/08/2024 7:50 PM EST 09/08/2024 7:56 PM EST us Nicho Rowan MD LAB BLOOD ORDERABLES Final Res ult Performing Organization Address City/[facility] Co de Phone Number [facility] [address] [place] [phone], * Coronavirus SARS-CoV-2 PCR - CEPHEID (09/08/2024 7:49 PM EST) SARS-COV-2 PCR (Cepheid) Negative Negative 09/08/2024 9:03 PM EST [facility] Comment: This test has been reviewed by the FDA and granted Emergency Use Authorization on December 31, 2021, for the qualitative detection of SARS-CoV-2 nucleic acids. Performance of this test has only been established in nasopharyngeal swab and nasal swab specimens collected in transport media. Positive results are indicative of the presence of the identified virus, but do not rule out co-infection with other pathogens not detected by the test. Negative results do not preclude SARS-CoV-2 infection and should not be used as the sole basis for patient management decisions. Negative results must be combined with clinical observations, patient history, and epidemiological information. Fact sheets: Patient: Xpert Xpress CoV-2 plus - Patient Fact Sheet (fda.gov) Healthcare provider: Xpert Xpress CoV-2 plus - Healthcare Provider Fact Sheet (fda.gov) Swab Nasopharyngeal structure / Unknown Non-blood Collection / Unknown 09/08/2024 7:49 PM EST 09/08/2024 7:53 PM EST Nicho Rowan MD LAB MICROBIOLOGY - GENERAL ORD ERABLES Final Result [facility] [address] [place] [address], [place] [phone] * Complete Blood Count with Auto Differential (09/08/2024 7:45 PM EST) White Cell Count 6.8 3.6 - 11.0 10*3/uL 09/08/2024 8:03 PM EST [facility] Red Cell Count 4.32 3.80 - 5.20 10*6/??L 09/08/2024 8:03 PM [facility] Hemoglobin 13.5 12.0 - 16.0 g/dL 09/08/2024 8:03 PM EST [facility] Hematocrit 40.8 35.0 - 47.0 % 09/08/2024 8:03 PM EST [facility] MCV 94.4 80.0 - 100.0 fL 09/08/2024 8:03 PM EST [facility] MCH 31.3 26.0 - 34.0 pg 09/08/2024 8:03 PM EST [facility] MCHC 33.1 32.0 - 36.0 g/dL 09/08/2024 8:03 PM EST [facility] RBC Distribution Width 12.6 11.6 - 14.8 % 09/08/2024 8:03 PM EST [facility] Platelet count 231 150 - 440 10*3/uL 09/08/2024 8:03 PM [facility] Neutrophils 63.1 40.0 - 70.0 % 09/08/2024 8:03 PM [facility] Immature Granulocytes 0.3 0.0 - 0.6 % 09/08/2024 8:03 PM EST [facility] Lymphocytes 28.1 20.0 - 50.0 % 09/08/2024 8:03 PM EST [facility] Monocytes 6.3 4.0 - 12.0 % 09/08/2024 8:03 PM [facility] Eosinophils 1.3 0.0 - 6.0 % 09/08/2024 8:03 PM EST [facility] Basophils 0.9 0.0 - 2.0 % 09/08/2024 8:03 PM EST [facility] Absolute Neutrophil Ct. 4.3 1.4 - 6.3 10*3/uL 09/08/2024 8:03 PM EST [facility] Absolute Lymphocyte Ct. 1.9 0.7 - 4.5 10*3/uL 09/08/2024 8:03 PM EST [facility] Absolute Monocyte Ct. 0.4 0.2 - 0.8 10*3/uL 09/08/2024 8:03 PM EST [facility] Absolute Eosinophil Ct. 0.1 0.0 - 0.3 10*3/uL 09/08/2024 8:03 PM EST [facility] Absolute Basophil Ct. 0.1 0.0 - 0.2 10*3/uL 09/08/2024 8:03 PM EST [facility] nRBC 0.0 0.0 - 0.0 % 09/08/2024 8:03 PM EST [facility] Blood Venous blood specimen / Unknown Venipuncture / Unknown 09/08/2024 7:45 PM EST 09/08/2024 7:56 PM EST us Nicho Rowan MD LAB BLOOD ORDERABLES Final Res ult [facility] [address] [place] [address], [place] [phone] * (ABNORMAL) Basic metabolic panel (09/08/2024 7:45 PM EST) [facility] Sodium 140 137 - 144 mmol/L 09/08/2024 8:18 PM [facility] Potassium 4.9 3.6 - 5.1 mmol/L 09/08/2024 8:18 PM [facility] Chloride 104 100 - 111 mmol/L 09/08/2024 8:18 PM [facility] CO2 27 23 - 32 mmol/L 09/08/2024 8:18 PM [facility] Anion gap 9 3 - 11 mmol/L 09/08/2024 8:18 PM [facility] BUN 16 8 - 24 mg/dL 09/08/2024 8:18 PM [facility] Creatinine 0.80 0.60 - 1.20 mg/dL 09/08/2024 8:18 PM [facility] Glucose 211(H) 70 - 200 mg/dL 09/08/2024 8:18 PM [facility] Comment: Normal fasting glucose ?75-99 mg/dL Impaired fasting glucose ?100 - 125 mg/dL Fasting glucose ? >125 mg/dL - provisional diagnosis of diabetes mellitus Random glucose ?>= 200 mg/dl is considered diagnostic for diabetes ADA Guidelines: Classification and Diagnosis of Diabetes: Standards of Medical Care in Diabetes - 202, Diabetes Care 202; S15-S33. Calcium 9.7 8.4 - 10.2 mg/dL 09/08/2024 8:18 PM [facility] eGFR 73 >60 mL/min/1. 73m*2 09/08/2024 8:18 PM [facility] Comment: Calculation based on the Chronic Kidney Disease Epidemiology Collaboration (CKD-EPI) equation refit without adjustment for race. ? Chronic Kidney Disease less than 60 ml/min/1.73 m2 ? Kidney Failure less than 15 ml/min/1.73 m2 ? Age (Years) ? Average GFR ? 20 - 29 ? 116 ml/min/1.73 m2 ? 30 - 39 ? 107 ml/min/1.73 m2 ? 40 - 49 ?99 ml/min/1.73 m2 ? 50 - 59 ?93 ml/min/1.73 m2 ? 60 - 69 ?85 ml/min/1.73 m2 ? 70 + ? 75 ml/min/1.73 m2 ? Pursuant to [employer] Public Act 06-120(1)(b)(1). ?? The 2020 CKD-EPI calculation used to estimate eGFR has only been validated for patients 18 years or older. Blood Venous blood specimen / Unknown Venipuncture / Unknown 09/08/2024 7:45 PM EST 09/08/2024 7:56 PM EST us Nicho Rowan MD LAB BLOOD ORDERABLES Final Res ult [facility] [address] [place] [address], [place] [phone] from Last 3 Months Insurance [place]ICA[place] [employer] MANAGED MEDICARE O Care Teams Cold Reduction Roller Relationship Specialty Start Date End Date Cristela Brand [place] [place] [address] PCP - General Primary Care 12/07/23
--- OUTSIDE RECORDS SUMMARY | 2024-10-20 13:54 | XMS_ITS | Clinical Summary ---
Author Organization [facility] Address [address] [place] [address] Care Team Providers Care Cash Register Balancer Name Role Phone Cristela Brand MD Primary Care Provider [phone] Social History Tobacco Use Types Packs/Day Years Used Date Smoking Tobacco: Never Assessed Sex and Gender Information Value Date Recorded Sex Assigned at Not on file Gender Identity Not on file Sexual Orientation Not on file Plan of Treatment Health Maintenance Due Date Last Done Comments COVID-19 Vaccine (#1) 04/27/1940 Depression Screening 1952 Preventative Health Evaluation 10/25/1957 DTap / Tdap / Td (1 - Tdap) 10/25/1958 Shingrix-Zoster Vaccine (1 of 2) 10/25/1989 Fall Risk Assessment 10/25/2004 Osteoporosis Screening (DEXA Scan) 10/25/2004 Pneumococcal Vaccine (1 of 1 - PCV) 10/25/2004 RSV Adult > 60+ Yrs or Pregn ant (1 - 1-dose 75+ series) 10/25/2014 Influenza Vaccine (#1) 2024 Hepatitis B Vaccines Aged Out No long er eligible based on patient's age to complete this topic RSV Ped < 20 months Aged Out No longe r eligible based on patient's age to complete this topic Care Teams Cash Register Balancer Relationship Specialty Start Date End Date Cristela Brand MD [address] [place] [address] PCP - General Internal Medicine 07/22/21
--- OUTSIDE RECORDS SUMMARY | 2024-10-20 13:54 | XMS_ITS | Patient Health Record ---
[facility] Address [address] [place] [address] Care Team Providers Care Spiral Winding Machine Helper Name Role Phone Cathie GIFFORD, Cristela Allen Primary Care Provider Un available Keaton Anderson Unavailable [phone] Allergies Allergen (clinical drug ingredient) Drug/Non Drug Allergy documented on EMR Reaction Allergy Type Onset Date Status lisinopril Lisinopril cough Drug Allergy Activ e Reason For Referral No Information Medications Medication SIG (Take, Route, Frequency, Duration) Notes Start Date End Date Status Aricept 10 MG Orally Once a day Active Tylenol Arthritis Pain Active Namenda 10 MG 1 tablet Orally Twic e a day Active Lipitor 10 MG 1 tablet Orally Once a day Active hydroCHLOROthiazide 12.5 MG 1 capsule in the morning Orally Once a day Active Vitamin D 2000 UNIT 1 tablet Orally Once a day Active Vitamin C Active Immunizations Vaccine Route Administration Date Status Comme nts Influenza Unknown 06/29/2017 Administered Influenza Unknown 04/24/2018 Administered Influenza Unknown 04/25/2019 Administered Social History Tobacco Use: Social History Observation Description Date Details (start date - stop date) Former Smoker NA - NA Tobacco Use/Smoking Question Answer Notes Are you a: former smoker When did you stop smoking? 2000 Additional Findings: Tobacco Non-User Current no n-smoker Alcohol Screen Question Answer Notes Did you have a drink containing alcohol in the p ast year? Yes Points 0 Interpretation Negative Tobacco use other than smoking: Question Answer Notes Are you an other tobacco user? No Problems Problem Type SNOMED Code ICD Code Onset Dates Problem Status W/U Status Risk Notes Problem Type 2 diabetes mellitus without complication (006523021) Type 2 diabetes mellitus without complication (E11.9) Active confirmed Plan Of Treatment Pending Test Test Name Order Date [id number] NAIL, 6 OR MORE 01/29/2018 [id number] NAIL, 6 OR MORE 05/07/2018 [id number] NAIL, 6 OR MORE 07/22/2018 [id number] NAIL, 6 OR MORE 11/23/2018 [id number] NAIL, 6 OR MORE 03/22/2019 [id number] NAIL, 6 OR MORE 07/15/2019 [id number] NAIL, 6 OR MORE 04/24/2020 [id number] NAIL, 6 OR MORE 01/17/2022 [id number] Plate 07/22/2018 [id number] Plate 04/24/2020 17038-Qpfqoron Plate 07/15/2019 [id number] Plate Each Additional 23710 I&D ABSCESS- SIMPLE,SINGLE 019 Insurance Providers Payer Name Payer Address Payer Phone Subscriber Number Group Number Insured Name Patient Relationship to Insured Coverage Start Date Coverage End Date Medicare National Govt [employer] [address] [facility] 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
== END 2024-10-20 13:00 | disposition home or self-care (01) ==
PROVIDERS: PCP Internal Medicine; Visit Provider Internal Medicine
DX: R55 Syncope and collapse (principal); F41.1 Generalized anxiety disorder; F01.50 Vascular dementia, unspecified severity, without behavioral disturbance, psychotic disturbance, mood disturbance, and anxiety

== ENCOUNTER → 2024-10-20 11:26 | Outpatient (BNVA) | payer MEDICARE, SELFPAY | PROVIDERS: PCP Internal Medicine; Visit Provider Internal Medicine | DX: R55 Syncope and collapse (principal); F41.1 Generalized anxiety disorder; F01.50 Vascular dementia, unspecified severity, without behavioral disturbance, psychotic disturbance, mood disturbance, and anxiety | CPT/HCPCS: 96127; 99212 ==

== ENCOUNTER 2024-11-24 08:50 | Outpatient (AMB) | payer MEDICARE, BC, SELFPAY ==
--- OUTSIDE RECORDS SUMMARY | 2024-11-24 09:02 | XMS_ITS | Clinical Summary ---
Author Organization [facility] Address [address] [place] [address] Care Team Providers Care Line Assembler Aircraft Name Role Phone Cathie Cristela Crawley Primary Care Provider [phone] Allergies No known active allergies Medications memantine [...] EST - 09/08/2024 11:07 PM EST Emergency [facility] Department of Emergency Services [address] [place] [id number] Nicho Rowan MD Vasovagal syncope (Primary Dx); Chest pain, unspecified; Encounter for screening laboratory testing for severe acute respiratory syndrome coronavirus 2 (SARS-CoV-2); Need for prophylactic chemotherapy Discharge Disposition: Home or Self Care from Last 3 Months Immunizations Immunization Administration Dates Next Due COVID-19 MRNA [place] [...] DTaP,Tdap,and Td Vaccines (1 - Tdap) 10/25/1957 Pneumococcal Vaccine, 50+ Years (1 of 1 - PCV) 10/25/1989 Zoster Vaccines (1 of 2) 10/25/1989 COVID-19 Vaccine (5 - season) 2024 05/14/2023, 09/10/2022, 02/14/2022, Additional history exists Influenza Vaccine (Season Ended) 2025 05/19/2023 HPV Vaccines Aged Out No longer [...] 09/08/2024 7:50 PM EST CORONAVIRUS SARS-COV-2 PCR ([facility]-CEP[facility]) Routine 09/08/2024 7:49 PM EST COMPLETE BLOOD [...] <3 <=14 ng/L 09/08/2024 10:23 PM EST [facility] Comment:Refer to the high se nsitivity TnI algorithm for further workup Blood Venous blood specimen / Unknown Venipuncture / Unknown 09/08/2024 9:45 PM EST 09/08/2024 9:52 PM EST us Nicho Rowan MD LAB BLOOD ORDERABLES Final Res ult [facility] [address] [place] [address], [place] [phone] * XR chest - pa or ap [...] PM EST 09/09/2024 7:07 AM EST Narrative [facility] (MUSE) - 09/09/2024 7:07 AM EST Ventricular Rate: 62 BPM Atrial Rate: 62 BPM P-R Interval: 146 ms QRS Duration: 74 ms Q-T Interval: 434 ms QTC Calculation(Bazett): 440 ms P [place]: 76 degrees R [place]: 59 degrees T [place]: 65 degrees Diagnosis: ??Poor data quality, interpretation may be adversely affected Normal sinus rhythm Minimal ??ST elevation, consider early repolarization, pericarditis, or injury Abnormal ECG When compared with ECG of 08-SEP-2024 19:30, Minimal ST elevation is apparent in the inferolateral leads Confirmed by Shad Blair ([id number]) on 09/08/2024 8:01:31 PM Also confirmed by Shad Blair ([id number]), editor sound Kiko Croft ([id number]) ??on 09/09/2024 7:07:05 AM Procedure Note Shad Blair MD - 09/09/2024 Ventricular Rate: 62 BPM Atrial Rate: 62 BPM P-R Interval: 146 ms QRS Duration: 74 ms Q-T Interval: 434 ms QTC Calculation(Bazett): 440 ms P [place]: 76 degrees R [place]: 59 degrees T [place]: 65 degrees Diagnosis: Poor data quality, interpretation may be adversely affected Normal sinus rhythm Minimal ST elevation, consider early repolarization, pericarditis, or injury Abnormal ECG When compared with ECG of 08-SEP-2024 19:30, Minimal ST elevation is apparent in the inferolateral leads Confirmed by Shad Blair ([id number]) on 09/08/2024 8:01:31 PM Also confirmed by Shad Blair ([id number]), editor sound Kiko Croft ([id number])on 09/09/2024 7:07:05 AM us Nicho Rowan MD ECG ORDERABLES Final Result COUNTS INCLUDE 234 BEDS AT THE [facility] IP C[facility]AC [facility] ([place]USE) [place] [address], [place] * Light blue top (09/08/2024 7:50 PM EST) Extra Tube, Coagulation 09/08/2024 7:59 PM EST [facility] Blood Venous blood specimen / Unknown Venipuncture / Unknown 09/08/2024 7:50 PM EST 09/08/2024 7:56 PM EST us Nicho Rowan MD LAB BLOOD ORDERABLES Final Res ult Performing Organization Address City/[facility] Co de Phone Number [facility] [address] [place] [phone], * Coronavirus SARS-CoV-2 PCR - CEPHEID (09/08/2024 7:49 PM EST) SARS-COV-2 PCR (Cepheid) Negative Negative 09/08/2024 9:03 PM EST [facility] Comment: This test has been reviewed [...] MICROBIOLOGY - GENERAL ORD ERABLES Final Result [facility] [address] [place] [address], [place] [phone] * Complete Blood Count with Auto Differential (09/08/2024 7:45 PM EST) White Cell Count 6.8 3.6 - 11.0 10*3/uL 09/08/2024 8:03 PM EST [facility] Red Cell Count 4.32 3.80 - 5.20 10*6/??L 09/08/2024 8:03 PM [facility] Hemoglobin 13.5 12.0 - 16.0 g/dL 09/08/2024 8:03 PM EST [facility] Hematocrit 40.8 35.0 - 47.0 % 09/08/2024 8:03 PM EST [facility] MCV 94.4 80.0 - 100.0 fL 09/08/2024 8:03 PM EST [facility] MCH 31.3 26.0 - 34.0 pg 09/08/2024 8:03 PM EST [facility] MCHC 33.1 32.0 - 36.0 g/dL 09/08/2024 8:03 PM EST [facility] RBC Distribution Width 12.6 11.6 - 14.8 % 09/08/2024 8:03 PM EST [facility] Platelet count 231 150 - 440 10*3/uL 09/08/2024 8:03 PM [facility] Neutrophils 63.1 40.0 - 70.0 % 09/08/2024 8:03 PM [facility] Immature Granulocytes 0.3 0.0 - 0.6 % 09/08/2024 8:03 PM EST [facility] Lymphocytes 28.1 20.0 - 50.0 % 09/08/2024 8:03 PM EST [facility] Monocytes 6.3 4.0 - 12.0 % 09/08/2024 8:03 PM [facility] Eosinophils 1.3 0.0 - 6.0 % 09/08/2024 8:03 PM EST [facility] Basophils 0.9 0.0 - 2.0 % 09/08/2024 8:03 PM EST [facility] Absolute Neutrophil Ct. 4.3 1.4 - 6.3 10*3/uL 09/08/2024 8:03 PM EST [facility] Absolute Lymphocyte Ct. 1.9 0.7 - 4.5 10*3/uL 09/08/2024 8:03 PM EST [facility] Absolute Monocyte Ct. 0.4 0.2 - 0.8 10*3/uL 09/08/2024 8:03 PM EST [facility] Absolute Eosinophil Ct. 0.1 0.0 - 0.3 10*3/uL 09/08/2024 8:03 PM EST [facility] Absolute Basophil Ct. 0.1 0.0 - 0.2 10*3/uL 09/08/2024 8:03 PM EST [facility] nRBC 0.0 0.0 - 0.0 % 09/08/2024 8:03 PM EST [facility] Blood Venous blood specimen / Unknown Venipuncture / Unknown 09/08/2024 7:45 PM EST 09/08/2024 7:56 PM EST us Nicho Rowan MD LAB BLOOD ORDERABLES Final Res ult [facility] [address] [place] [address], [place] [phone] * (ABNORMAL) Basic metabolic panel (09/08/2024 7:45 PM EST) [facility] Sodium 140 137 - 144 mmol/L 09/08/2024 8:18 PM [facility] Potassium 4.9 3.6 - 5.1 mmol/L 09/08/2024 8:18 PM [facility] Chloride 104 100 - 111 mmol/L 09/08/2024 8:18 PM [facility] CO2 27 23 - 32 mmol/L 09/08/2024 8:18 PM [facility] Anion gap 9 3 - 11 mmol/L 09/08/2024 8:18 PM [facility] BUN 16 8 - 24 mg/dL 09/08/2024 8:18 PM [facility] Creatinine 0.80 0.60 - 1.20 mg/dL 09/08/2024 8:18 PM [facility] Glucose 211(H) 70 - 200 mg/dL 09/08/2024 8:18 PM [facility] Comment: Normal fasting glucose ?75-99 [...] 8.4 - 10.2 mg/dL 09/08/2024 8:18 PM [facility] eGFR 73 >60 mL/min/1. 73m*2 09/08/2024 8:18 PM [facility] Comment: Calculation based on the [...] ? 75 ml/min/1.73 m2 ? Pursuant to [employer] Act 06-120(1)(b)(1). ?? The 2020 CKD-EPI calculation used to estimate eGFR has only been validated for patients 18 years or older. Blood Venous blood specimen / Unknown Venipuncture / Unknown 09/08/2024 7:45 PM EST 09/08/2024 7:56 PM EST us Nicho Rowan MD LAB BLOOD ORDERABLES Final Res ult COUNTS INCLUDE 234 BEDS AT [facility] [address] [place] [address], [place] [phone] from Last 3 Months Insurance MEDICAID [place] [employer] MANAGED MEDICARE O Care Teams Line Assembler Aircraft Relationship Specialty Start Date End Date Cristela Brand [facility] [place] [address] PCP - General Primary Care 12/07/23
--- OUTSIDE RECORDS SUMMARY | 2024-11-24 09:02 | XMS_ITS | Patient Health Record ---
[facility] Address [address] [place] [address] Care Team Providers Care Sales And Management Trainee Name Role Phone Cathie GIFFORD, Cristela Allen Primary Care Provider Un available Keaton Anderson Unavailable [phone] Allergies Allergen (clinical drug ingredient) Drug/Non Drug [...] Problem Type 2 diabetes mellitus without complication (318956224) Type 2 diabetes mellitus without complication (E11.9) Active confirmed Plan Of Treatment Pending Test Test Name Order Date [id number] NAIL, 6 OR MORE 01/29/2018 [id number] NAIL, 6 OR MORE 05/07/2018 [id number] NAIL, 6 OR MORE 07/22/2018 [id number] NAIL, 6 OR MORE 11/23/2018 [id number] NAIL, 6 OR MORE 03/22/2019 [id number] NAIL, 6 OR MORE 07/15/2019 [id number] NAIL, 6 OR MORE 04/24/2020 [id number] NAIL, 6 OR MORE 01/17/2022 [id number] Plate 07/22/2018 [id number] Plate 04/24/2020 [id number] Plate 07/15/2019 [id number] Plate Each Additional 00889 I&D ABSCESS- SIMPLE,SINGLE 019 Insurance Providers Payer Name Payer Address Payer Phone Subscriber Number Group Number Insured Name Patient Relationship to Insured Coverage Start Date Coverage End Date Medicare National Govt [employer] [address] [facility] [place] [address] [id number] Kisha Mejia Self - patient is the insured 6 [employer] Blue Shield [address] [place] [address] [id number] Kisha Mejia Self - patient is the insured Medical (General) History Medical History History ICD Code Back,Hip,and Knee pain Diabetic - diet controlled Gall bladder problems High blood pressure 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
--- OUTSIDE RECORDS SUMMARY | 2024-11-24 09:02 | XMS_ITS | Clinical Summary ---
Author Organization [facility] Address [address] [place] [address] Care Team Providers Care Paleontological Helper Name Role Phone Cristela Brand MD Primary Care Provider [phone] Social History Tobacco Use Types Packs/Day Years [...] age to complete this topic Care Teams Paleontological Helper Relationship Specialty Start Date End Date Cristela Brand MD [address] [place] [address] PCP - General Internal Medicine 07/22/21
[2024-11-24 09:07] VITALS: BP 112/70; PULSE 77; RESP 16; TEMP 36.7; O2SAT 97; BMI 20.8
--- NOTE | 2024-11-24 09:07 | A.OFFPC_ITS ---
Vital Signs 11/24/24 09:07 Height 5 ft 4 in Weight 121 lb BMI 20.8 BP 112/70 Blood Pressure Location Lt brachial Position Sitting Respiration 16 Pulse 77 Pulse Source Pulse Oximeter Temp 98.0 F Temp Source Oral Pulse Oximetry (%) 97 Oxygen Delivery Method Room Air Intake Visit Reasons: Annual PE Intake Note: Pt is here today for her PE Allergies lisinopril Adverse Reaction (Unknown, Verified 11/24/24 09:26) cough Medication List - Last Reconciled 11/24/24 by Cristela Brand MD acetaminophen (Tylenol) 500 mg PO ONCE atorvastatin 10 mg PO Q OTHER DAY cholecalciferol (vitamin D3) 2,000 units PO DAILY donepezil 10 mg PO DAILY escitalopram oxalate (Lexapro) 10 mg PO DAILY hydroxyzine HCl 10 mg PO BEDTIME PRN magnesium glycinate mg PO melatonin 6 mg PO BEDTIME memantine 10 mg PO BID tramadol 50 mg PO DAILY PRN vitamin B complex 1 tab PO DAILY [Wheelchair As directed NS] Tobacco use date assessed: 11/24/24 Fall risk assessment: No Falls in past year Last assessed Fall Risk: 11/24/24 Dental Screening Dental Screen Date: 11/24/24 Did you have a dental visit in the last 12 months?: No Did you have a dental problem in the last 6 months where you did not have access to dental care?: No Was dental information given to patient?: No HPI Annual PE HPI Details 84 year-old lady with past medical histo ry significant for diabetes mellitus, generalized anxiety disorder, dementia, osteoarthritis, and dyslipidemia, here today for her physical exam. Latest fasting labs done earlier this year showed lipids and diabetes in good control. Blood pressure stable and controlled on present treatment. However dementia seems to be progressing despite being on donepezil and memantine. Patient's daughter who accompanies her on this visit states that her mother starts becoming more agitated have crying spells starting as early as noon time until late afternoon. She has not been able to par ticipate now in daycare programs and stays home. She takes melatonin 6 mg at night to help sleep, which sometimes helps. She is also taking escitalopram and hydroxyzine as needed for acute anxiety attacks seems to have plateaued in its affect. She takes tramadol as needed for her low back pain, which has been helping [facility] Medical History (Updated 11/25/24 @ 03:53 by Cristela Brand MD) Vasovagal syncope Type 2 diabetes mellitus with microalbuminuria History of COVID-19 Generalized anxiety disorder Chronic low back pain Osteoarthritis Dementia Dyslipidemia Surgical History Hx laparoscopic cholecystectomy History of appendectomy Family History Mother HTN (hypertension) Hyperlipidemia Diabetes mellitus Son No problems noted. Son No problems noted. Daughter No problems noted. Daughter No problems noted. Social History Housing: Other Housing Other:: Lives with daughter Teto Patient Tobacco Use Status: Former Tobacco user Years Smoked: 30 yrs e-Cigarette/Vaping Use: Never Used Second Hand Smoke Exposure: No service: No Current occupational status: retired Cognitive needs: No Hearing needs: No Vision needs: Yes Questionnaire PHQ-9 Over the last 2 weeks, how often have you been bothered by any of the following problems? 3. Trouble falling or staying asleep, or sleeping too much: several days Depression Screening Interpretation: Negative Depression Screening Done: Yes 01141 - PHQ-9 Billing: Patient declined-do not bill (Unable to assess, patient has dementia) Source: Developed by Drs. Stanley Poe, Ann Donovan, Juan Wolf and colleagues, with an educational fercho from [employer]. Thrive Questionnaire Date Thrive assessed: 11/23/24 I am a: Parent/Caregiver What is your living situation today?: I have a steady place to live Within the past 12 months, did the food you bought not last and you didn't have the money to get more?: Never true Within the past 12 months, did you worry whether your food would run out before you got money to buy more?: Never true Do you have trouble paying for medicines?: No Do you have trouble getting transportation to medical appointments?: No Do you have trouble paying your heating and electricity bill?: No Do you have trouble taking care of your child, family member or friend?: No Do you have trouble with day-to-day activities such as bathing, preparing meals, shopping, managing finances, etc.?: Yes Are you currently unemployed and looking for a job?: No Are you interested in more education?: No Please select the resources that you would like help with: None Currently or been in a relationship where the following occur: No concerns reported THRIVE Score: 0 AUDIT C Alcohol Use Questionnaire (AUDIT-C) 1. How often do you have a drink containing alcohol?: Never Total Score: 0 LUZMA-7 AMB Questionnaire LUZMA-7 Date LUZMA - 7 assessed: 10/20/24 Feeling nervous, anxious, or on edge: 3 = Nearly every day Not being able to stop or control worryin = Nearly every day Worrying too much about different things: 3 = Nearly every day Trouble relaxin = Nearly every day Being so restless that it is hard to sit still: 1 = Several days Becoming easily annoyed or irritable: 1 = Several days Feeling afraid as if something awful might happen: 1 = Several days Total LUZMA-7 score (0-4 normal; 5-9 mild; 10-14 moderate; 15-21 severe): 15 Source: Developed by Drs. Stanley Poe, Ann Donovan, Juan Wolf and colleagues, with an educational fercho from [employer]. Review of Systems Const Details: Most of review of system obtained from daughter, as patient unable to voice her symptoms ENT Denies nasal congestion and Denies nasal discharge Card Denies leg edema and Denies dyspnea Resp Denies cough and Denies dyspnea GI Denies abdominal pain and Denies change in bowel habits Denies hematuria, Denies urinary frequency and Denies urinary urgency Musc Reports abnormal gait Neuro Reports abnormal gait and Denies seizure-like activity Endo Denies polydipsia and Denies polyuria Colin/Lymph Denies easy bruising Physical exam (Primary Care) Vital Signs: Last Vital Signs Temp 98.0 F 11/24/24 09:07 Pulse 77 11/24/24 09:07 Resp 16 11/24/24 09:07 BP 112/70 11/24/24 09:07 Pulse Ox 97 11/24/24 09:07 Oxygen Delivery Method Room Air 11/24/24 09:07 BMI result Body Mass Index 20.8 Tobacco/Smoking Status: Tobacco use Status Tobacco use date assessed 11/24/24 11/24/24 09:10 Patient Tobacco Use Status Former Tobacco user 11/24/24 09:10 e-Cigarette/Vaping Use Never Used 11/24/24 09:10 PHQ-9: PHQ-9 Score PHQ-9: Total score 6 11/24/24 09:28 Depression Screening Interpretation: Negative Thrive Assessment: Date of Thrive Assessment Date Thrive assessed 11/23/24 11/24/24 09:10 Currently or been in a relationship where the following occur: No concerns reported Advance Care Planning discussion: Completed/Scanned Date of discussion: 11/24/24 Who was present: Patient and daughter Forms completed: Health Care Proxy and MOLST Time spent: 16-45 minutes Actual minutes spent: 5 Const Other: Awake, oriented to person only, uses a walker, accompanied by daughter, no acute cardio respiratory distress noted HENCA Head: Yes normocephalic Ears: external ears normal General nose exam: Normal external nose present and No nasal discharge present Face and sinus: Yes face symmetric Mouth: oropharynx normal and moist mucous membranes Eyes General: appearance normal, both eyes and all related structures Neck Other: Supple with no lymphadenopathy, thyroid gland nonpalpable Resp Auscultation: clear to auscultation bilaterally Cardio Other: S1-S2 present regular rate and rhythm GI Other: Normal bowel sounds, soft, nontender with no mass palpated Skin General skin exam: no rashes or lesions noted Neuro General: moves all extremities and no focal motor deficits Extrem General: Yes full ROM, Yes no joint enlargement and Yes no clubbing, cyanosis or edema Psych Appearance: grossly normal and well kempt Mental Status: other (Oriented to person) Speech and movement: Slowed speech present (Psych) and Slowed movement present (Neuro) Affect: Blunted affect present Attitude: cooperative Results Reviewed Results Reviewed: RUN: 11/24/24926 PAGE 1 [facility] [address] [place] [id number] Auto Former Machine Operator: Nicho Blunt M.D. Specimen Inquiry Name: Kisha Mejia Age/Sex: 83/F : 1940 Unit#: [id number] Attend Dr: Cristela Brand MD Re09/08/24 Status: DEP [facility] Disch: SPEC : [id number] RENETTA: 09/08/24 STATUS: COMP REQ : [id number] RECD: 09/08/[address]: Cristela Brand MD COMP: 09/08/24 ENTERED: 09/08/[address] [facility] [address]: ORDERED: Met Prof Fast, AST, ALT, Lipid Panel, Vitamin D 25-OH Test Result Flag Reference Sodium 143 135-145 mmol/L Potassium 4.1 3.3-5.1 mmol/L CL 109 H 96-108 mmol/L CO2 29 22-29 mmol/L Gap 9 L 12-20 BUN 18 H 9-16 mg/dL Creat 0.76 0.5-1.4 mg/dL eGFR > 60 Chronic Kidney Disease: Estimated GFR < 60 mL/min/1.73m2 Severe Kidney Disease: Estimated GFR < 15 mL/min/1.73m2 FBS 121 H 60-99 mg/dL A fasting glucose from 100-125 mg/dl is considered impaired (pre-diabetes). CA 9.8 8.4-10.2 mg/dL AST (GOT) 21 5-31 U/L ALT (GPT) 21 0-31 U/L Triglyceride 130 <150 mg/dL Desirable Triglyceride: less than 150 mg/dL Borderline High Triglyceride 150-199 mg/dL High Triglyceride: 200-499 mg/dL Very High Triglyceride: greater than or equal to 5OO mg/dL Cholesterol 138 <200 mg/dL Desirable Cholesterol: less than 200 mg/dL Borderline High Cholesterol: 200-239 mg/dL High Cholesterol: greater than 239 mg/dL LDL Calculated 68 <100 mg/dL Desirable LDL: less than 100 mg/dL Near Optimal/Above Optimal LDL: 110-129 mg/dL Borderline High LDL: 130-159 mg/dL High LDL: 160-189 mg/dL Very High LDL: greater than or equal to 190 mg/dL HDL 44 >40 mg/dL Desirable HDL: greater than 40 mg/dL Note: This HDL assay may give artificially low results in patients with liver disease. Vit D 25-OH Tot 31.7 >30 ng/mL Health Based Reference Values* < 20 ng/mL Deficient 20-30 ng/mL Insufficient > 30 ng/mL Sufficient Laboratory Tests 11/10/23 09/08/24 08:37 08:46 Estimat Average Glucose 148 Hemoglobin A1c % 6.8 H Urine Creatinine 140.87 Urine Microalbumin 49.0 Microalb/Creat Ratio 34.7 H Coding Level of Care Code Est Pt Prev Care >65y(10025) Diagnoses Annual visit for general adult medical examination with abnormal findings Z00.01 Generalized anxiety disorder F41.1 Vascular dementia without behavioral disturbance, psychotic disturbance, mood disturbance, or anxiety, unspecified dementia severity F01.50 Dementia behavioral or psychological symptom: without behavioral, psychotic, or mood disturbance or anxiety Dementia severity: unspecified severity Dementia type: vascular dementia 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; R80.9 Chronic bilateral low back pain without sciatica M54.50; G89.29 Back pain laterality: bilateral Sciatica presence: without sciatica Dyslipidemia E78.5 Advanced directives, counseling/discussion Z71.89 Additional Codes Vital Signs *Quality* - Advance Care Planning discussion: Completed/Scanned ([id number]) Vital Signs *Quality* - Time spent: 16-45 minutes ([id number]) Assessment & Plan Assessment & Plan (1) Annual visit for general adult medical examination with abnormal findings: Code(s): Z00.01 - Encounter for general adult medical examination with abnormal findings Plan: Reviewed recent fasting lab results with patient's daughter. Up-to-date with all her vaccines. No longer gets screening mammograms colonoscopies are Paps. . (2) Generalized anxiety disorder: Code(s): F41.1 - Generalized anxiety disorder Category: Medical Plan: Continue escitalopram and hydroxyzine PRN, patient sent for trazodone 50 mg per tablet to take half a tablet initially for the 1st 7 days and may increase dose to 50 mg given at noon time (3) Dementia: Code(s): F03.90 - Unspecified dementia, unspecified severity, without behavioral disturbance, psychotic disturbance, mood disturbance, and anxiety Category: Medical Qualifiers: Dementia behavioral or psychological symptom: without behavioral, psychotic, or mood disturbance or anxiety Dementia severity: unspecified sever ity Dementia type: vascular dementia Qualified Code(s): F01.50 - Vascular dementia, unspecified severity, without behavioral disturbance, psychotic disturbance, mood disturbance, and anxiety Plan: Continued on memantine and donepezil, neurology consult ordered with Dr. Paul per patient's daughter request (4) Type 2 diabetes mellitus with microalbuminuria: Code(s): E11.29 - Type 2 diabetes mellitus with other diabetic kidney complication; R80.9 - Proteinuria, unspecified Category: Medical Plan: Diabetes controlled with diet. Hemoglobin A1c is at 6.8% (5) Chronic low back pain: Code(s): M54.50 - Low back pain, unspecified; G89.29 - Other chronic pain Category: Medical Qualifiers: Back pain laterality: bilateral Sciatica presence: without sciatica Qualified Code(s): M54.50 - Low back pain, unspecified; G89.29 - Other chronic pain Plan: Takes tramadol as needed for low back pain (6) Dyslipidemia: Code(s): E78.5 - Hyperlipidemia, unspecified Category: Medical Plan: Continue with atorvastatin 10 mg 1 tablet every other day (7) Advanced directives, counseling/discussion: Code(s): Z71.89 - Other specified counseling Plan: Initiated the conversation about Advanced Directives. Advanced Directives help patients prepare for current and future decisions about their medical treatment and place of care. Discussed with patient that it is a process where a patients current condition and prognosis are reviewed, their wishes for information regarding their illness are elicited, and likely medical dilemmas are presented and options discussed. MOLST and healthcare proxy form completed today. These forms can be amended as needed, reviewed yearly and make changes as needed Orders: Referrals Neurology Referral F01.50 - Vascular dementia, unspecified severity, without behavioral disturbance, psychotic disturbance, mood disturbance, and anxiety Medications: New trazodone 50 mg PO BEDTIME PRN 30 tabs 1RF sleep F41.1 - Generalized anxiety disorder
== END 2024-11-24 10:21 | disposition home or self-care (01) ==
PROVIDERS: PCP Internal Medicine; Visit Provider Internal Medicine
DX: Z00.00 Encounter for general adult medical examination without abnormal findings (principal); F41.1 Generalized anxiety disorder; F01.50 Vascular dementia, unspecified severity, without behavioral disturbance, psychotic disturbance, mood disturbance, and anxiety; E11.29 Type 2 diabetes mellitus with other diabetic kidney complication; R80.9 Proteinuria, unspecified; M54.50 Low back pain, unspecified; G89.29 Other chronic pain; E78.5 Hyperlipidemia, unspecified

== ENCOUNTER → 2024-11-24 08:50 | Outpatient (BNVA) | payer MEDICARE, SELFPAY | PROVIDERS: PCP Internal Medicine; Visit Provider Internal Medicine | DX: Z00.01 Encounter for general adult medical examination with abnormal findings (principal); F41.1 Generalized anxiety disorder; E78.5 Hyperlipidemia, unspecified; F01.50 Vascular dementia, unspecified severity, without behavioral disturbance, psychotic disturbance, mood disturbance, and anxiety; E11.29 Type 2 diabetes mellitus with other diabetic kidney complication; R80.9 Proteinuria, unspecified; M54.50 Low back pain, unspecified; G89.29 Other chronic pain; Z71.89 Other specified counseling; Z79.899 Other long term (current) drug therapy | CPT/HCPCS: 99397 ==

== ENCOUNTER 2025-01-24 08:54 | Outpatient (AMB) | payer MEDICARE, SELFPAY ==
--- NOTE | 2025-01-24 08:52 | A.OFFPC_ITS ---
Intake Visit Reasons: TV follow up lexapro/ I phone Intake Note: Pt is having a telehealth visit to f/u on med lexapro Allergies lisinopril Adverse Reaction (Unknown, Verified 01/24/25 09:06) cough Medication List - Last Reconciled 01/24/25 by Cristela Brand MD acetaminophen (Tylenol) 500 mg PO ONCE atorvastatin 10 mg PO Q OTHER DAY cholecalciferol (vitamin D3) 2,000 units PO DAILY donepezil 10 mg PO DAILY escitalopram oxalate (Lexapro) 20 mg PO DAILY hydroxyzine HCl 10 mg PO BEDTIME PRN magnesium glycinate mg PO melatonin 6 mg PO BEDTIME memantine 10 mg PO BID tramadol 50 mg PO DAILY PRN vitamin B complex 1 tab PO DAILY [Wheelchair As directed NS] Tobacco use date assessed: 11/24/24 Fall risk assessment: 2 + Falls in past year Last assessed Fall Risk: 01/24/25 Dental Screening Dental Screen Date: 01/24/25 Did you have a dental visit in the last 12 months?: No Did you have a dental problem in the last 6 months where you did not have access to dental care?: No Was dental information given to patient?: No HPI TV follow up lexapro/ I phone HPI Details 84-year-old lady with history of Alzheim er's dementia now presenting with agitation. He was started on Lexapro, and trazodone, which has not really been helping. Patient's daughter states that her mother has been having constant screaming and kicking while at the the adult daycare. Doxazosin does not seem to help. She has been on Lexapro now for almost 2 months and it has not showed any improvement in her agitation. She has been having some improvem ent in her sleep when she takes trazodone at bedtime. They have a new neurology appointment at [facility] on 03/10/2025 [facility] Medical History Vasovagal syncope Type 2 diabetes mellitus with microalbuminuria History of COVID-19 Generalized anxiety disorder Chronic low back pain Osteoarthritis Dementia Dyslipidemia Surgical History Hx laparoscopic cholecystectomy History of appendectomy Family History Mother HTN (hypertension) Hyperlipidemia Diabetes mellitus Son No problems noted. Son No problems noted. Daughter No problems noted. Daughter No problems noted. Social History Housing: Other Housing Other:: Lives with daughter Teto Patient Tobacco Use Status: Former Tobacco user Years Smoked: 30 yrs e-Cigarette/Vaping Use: Never Used Second Hand Smoke Exposure: No service: No Current occupational status: retired Cognitive needs: No Hearing needs: No Vision needs: Yes Questionnaire Thrive Questionnaire Date Thrive assessed: 11/23/24 I am a: Parent/Caregiver What is your living situation today?: I have a steady place to live Within the past 12 months, did the food you bought not last and you didn't have the money to get more?: Never true Within the past 12 months, did you worry whether your food would run out before you got money to buy more?: Never true Do you have trouble paying for medicines?: No Do you have trouble getting transportation to medical appointments?: No Do you have trouble paying your heating and electricity bill?: No Do you have trouble taking care of your child, family member or friend?: No Do you have trouble with day-to-day activities such as bathing, preparing meals, shopping, managing finances, etc.?: Yes Are you currently unemployed and looking for a job?: No Are you interested in more education?: No Please select the resources that you would like help with: None Currently or been in a relationship where the following occur: No concerns reported THRIVE Score: 0 LUZMA-7 AMB Questionnaire LUZMA-7 Date LUZMA - 7 assessed: 10/20/24 Source: Developed by Drs. Stanley Poe, Ann Donovan, Juan Wolf and colleagues, with an educational fercho from [employer]. Review of Systems Const Details: Most of review of system obtained from daughter, as patient unable to voice her symptoms ENT Denies nasal congestion and Denies nasal discharge Card Denies leg edema and Denies dyspnea Resp Denies cough and Denies dyspnea GI Denies abdominal pain and Denies change in bowel habits Denies hematuria, Denies urinary frequency and Denies urinary urgency Musc Reports abnormal gait Neuro Reports abnormal gait and Denies seizure-like activity Psych Reports as per HPI Endo Denies polydipsia and Denies polyuria Colin/Lymph Denies easy bruising Physical exam (Primary Care) Tobacco/Smoking Status: Tobacco use Status Tobacco use date assessed 11/24/24 01/24/25 08:53 Patient Tobacco Use Status Former Tobacco user 01/24/25 08:53 e-Cigarette/Vaping Use Never Used 01/24/25 08:53 Thrive Assessment: Date of Thrive Assessment Date Thrive assessed 11/23/24 01/24/25 08:53 Currently or been in a relationship where the following occur: No concerns reported Telehealth Telehealth Telehealth Platform: 51 Auto Location of provider rendering services: practice address Location of patient: address on file Patient Identification confirmed using: Name, : Yes Telehealth method: video Patient verbally consented to treatment: Yes Patient verbally consented to billing insurance company: Yes Patient informed of any privacy concerns related to visit: Yes Minutes spent on Phone/Video with Pt.: 20 Coding Level of Care Code Tele Est Pt Level 4 (41419) Diagnoses Agitation due to dementia F03.911 Alzheimer's dementia G30.9; F02.80 Assessment & Plan Assessment & Plan (1) Agitation due to dementia: Code(s): F03.911 - Unspecified dementia, unspecified severity, with agitation Category: Medical Plan: Prescription sent for risperidone 0.25 mg to be given at noon time and may take another dose at night as needed for episodes of agitation. (2) Alzheimer's dementia: Code(s): G30.9 - Alzheimer's disease, unspecified; F02.80 - Dementia in other diseases classified elsewhere, unspecified severity, without behavioral disturbance, psychotic disturbance, mood disturbance, and anxiety Category: Medical Plan: Started on Rexulti 1 mg per tablet, advised to take half a tablet or 0.5 mg once a day for the 1st 7 days and then increase dose to 1 mg daily thereafter. See her back for follow-up in March 2025 via telehealth Medications: New brexpiprazole (Rexulti) Take half a tablet or 0.5 mg once a day for 7 days, and then increase it due to 1 mg daily afterwards 1 mg PO DAILY 30 tabs 1RF F02.80 - Dementia in other diseases classified elsewhere, unspecified severity, without behavioral disturbance, psychotic disturbance, mood disturbance, and anxiety, F03.911 - Unspecified dementia, unspecified severity, with agitation, G30.9 - Alzheimer's disease, unspecified risperidone Take 1 tablet at noon time and may take a 2nd dose at bedtime as needed for agitation 0.25 mg PO BID 60 tabs 0RF F03.911 - Unspecified dementia, unspecified severity, with agitation Discontinued hydroxyzine HCl Discontinued Reason: Doctor's Order 10 mg PO BEDTIME PRN 30 tabs 2RF acute anxiety attacks escitalopram oxalate (Lexapro) Discontinued Reason: Doctor's Order 20 mg PO DAILY 30 tabs 4RF F41.1 - Generalized anxiety disorder
--- OUTSIDE RECORDS SUMMARY | 2025-01-24 09:33 | XMS_ITS | Clinical Summary ---
Author Organization [facility] Address [address] [place] [address] Care Team Providers Care Leather Production Worker Name Role Phone Cristela Brand Primary Care Provider [phone] Allergies No known active allergies Medications memantine [...] mg by mouth in the morning. Active Immunizations Immunization Administration Dates Next Due COVID-19 [...] 03/08/2024 9:30 AM EDT Plan of Treatment Upcoming Encounters Date Type Department Care Team (Late st Contact Info) Description 03/10/2025 10:00 AM EDT Office Visit [facility] [address] [place] [address] [phone] Sameera Mercer APRN [address] [place] [address] [phone] 04/14/2025 10:00 AM EDT Office Visit [facility] [address] [place] [address] [phone] Sameera Mercer APRN [address] [place] [address] [phone] Health Maintenance Due Date Last Done Comments Bone Density Screening 1940 HIV Screening 1940 Medicare Annual Wellness (AWV) 1940 DTaP,Tdap,and Td Vaccines (1 - Tdap) 10/25/1957 Pneumococcal Vaccine, 50+ Years (1 of 1 - PCV) 10/25/1989 Zoster Vaccines (1 of 2) 10/25/1989 COVID-19 Vaccine ( - season) 2024 05/14/2023, 09/10/2022, 02/14/2022, Additional [...] on patient's age to complete this topic Insurance MEDICAID [facility] [employer] MANAGED MEDICARE PPO Care Teams Leather Production Worker Relationship Specialty Start Date End Date Cristela Brand 1962 [place] [address] PCP - General Primary Care 12/07/23
== END 2025-01-24 10:02 | disposition home or self-care (01) ==
LOC: HO.HMCC 08:54
PROVIDERS: PCP Internal Medicine; Visit Provider Internal Medicine
DX: G30.9 Alzheimer's disease, unspecified (principal); F02.80 Dementia in other diseases classified elsewhere, unspecified severity, without behavioral disturbance, psychotic disturbance, mood disturbance, and anxiety

== ENCOUNTER → 2025-01-24 08:54 | Outpatient (BNVA) | payer MEDICARE, SELFPAY | PROVIDERS: PCP Internal Medicine; Visit Provider Internal Medicine | DX: Z13.89 Encounter for screening for other disorder (principal) ==

== ENCOUNTER 2025-07-04 15:49 | Outpatient (AMB) | payer MEDICARE, SELFPAY ==
--- NOTE | 2025-07-04 15:41 | A.OFFPC_ITS ---
Intake Visit Reasons: DME, electric, commode & wheelchair. Household Appliances Salesperson Required: No Allergies lisinopril Adverse Reaction (Unknown, Verified 07/04/25 16:11) cough Medication List - Last Reconciled 07/04/25 by Cristela Brand MD acetaminophen (Tylenol) 500 mg PO ONCE atorvastatin 10 mg PO Q OTHER DAY brexpiprazole (Rexulti) 1 mg PO DAILY cholecalciferol (vitamin D3) 2,000 units PO DAILY donepezil 10 mg PO DAILY magnesium glycinate mg PO melatonin 6 mg PO BEDTIME memantine 10 mg PO BID risperidone 0.25 mg PO BID tramadol 50 mg PO DAILY PRN vitamin B complex 1 tab PO DAILY [Wheelchair As directed NS] Tobacco use date assessed: 07/04/25 Fall risk assessment: 2 + Falls in past year Last assessed Fall Risk: 07/04/25 Dental Screening Dental Screen Date: 07/04/25 Did you have a dental visit in the last 12 months?: No Did you have a dental problem in the last 6 months where you did not have access to dental care?: No Was dental information given to patient?: Patient declined HPI DME, electric, commode & wheelchair. HPI Details This is an 84-year-old female whose care is managed by her daughter, presenting via telehealth for medication review and chronic condition management. The patient has dementia, characterized by calling out spells, though she does not realize she is doing it . She has a history of anxiety and is comforted by holding hands or listening to music, particularly [place] music or Jimmie Veronica. The patient suffers from urinary and bowel incontinence and is dependent on her daughter for hygiene. There are concerns with the care at her adult day program, which she attends five days a week, as she has come home soaking wet and with poor perineal hygiene. She has a history of three urinary tract infections within four months of starting the program. Nutritionally, the patient is described as being very thin, like skin and bones, with an estimated weight in the 110s. She has difficulty chewing and is given three protein drinks daily, puddings, and has her medications dissolved in applesauce. Her dependence on being fed has increased to about 50% of the time, although she can manage some finger foods. Current medications for dementia include donepezil, memantine, and risperidone, with risperidone noted as being most effective. A previous trial of another medication at 0.5 mg caused excessive sedation. She also takes vitamin D 2000 units, magnesium glycinate, and melatonin. The patient exhibits impaired mobility and requires assistance for ambulation. The family has installed a wheelchair ramp and is planning to purchase a semi- electric hospital bed and a bedside commode [id number] due to insurance not covering the cost. The patient is up to date on vaccinations, having received both the influenza and Pfizer COVID-19 vaccine on June 29. [facility] Medical History Alzheimer's dementia Agitation due to dementia Vasovagal syncope Type 2 diabetes mellitus with microalbuminuria History of COVID-19 Generalized anxiety disorder Chronic low back pain Osteoarthritis Dementia Dyslipidemia Surgical History Hx laparoscopic cholecystectomy History of appendectomy Family History Mother HTN (hypertension) Hyperlipidemia Diabetes mellitus Son No problems noted. Son No problems noted. Daughter No problems noted. Daughter No problems noted. Social History Housing: Other Housing Other:: Lives with daughter Teto Patient Tobacco Use Status: Former Tobacco user Years Smoked: 30 yrs e-Cigarette/Vaping Use: Never Used Second Hand Smoke Exposure: No service: No Current occupational status: retired Cognitive needs: No Hearing needs: No Vision needs: Yes Questionnaire PHQ-9 Over the last 2 weeks, how often have you been bothered by any of the following problems? 1. Little interest or pleasure in doing things: not at all 2. Feeling down, depressed, or hopeless: not at all 3. Trouble falling or staying asleep, or sleeping too much: not at all 4. Feeling tired or having little energy: not at all 5. Poor appetite or overeating: not at all 6. Feeling bad about yourself - or that you are a failure or have let yourself or your family down: not at all 7. Trouble concentrating on things, such as reading the newspaper or watching television: not at all 8. Moving or speaking so slowly that other people could have noticed. Or the opposite - being so fidgety or restless that you have been moving around a lot more than usual: not at all 9. Thoughts that you would be better off or of hurting yourself in some way: not at all Total score: 0 Depression Screening Interpretation: Negative Depression Screening Done: Yes 66246 - PHQ-9 Billing: Yes Source: Developed by Drs. Stanley Poe, Ann Donovan, Juan Wolf and colleagues, with an educational fercho from [employer]. Thrive Questionnaire Date Thrive assessed: 11/23/24 I am a: Parent/Caregiver What is your living situation today?: I have a steady place to live Within the past 12 months, did the food you bought not last and you didn't have the money to get more?: Never true Within the past 12 months, did you worry whether your food would run out before you got money to buy more?: Never true Do you have trouble paying for medicines?: No Do you have trouble getting transportation to medical appointments?: No Do you have trouble paying your heating and electricity bill?: No Do you have trouble taking care of your child, family member or friend?: No Do you have trouble with day-to-day activities such as bathing, preparing meals, shopping, managing finances, etc.?: Yes Are you currently unemployed and looking for a job?: No Are you interested in more education?: No Please select the resources that you would like help with: None Currently or been in a relationship where the following occur: No concerns reported THRIVE Score: 0 AUDIT C Alcohol Use Questionnaire (AUDIT-C) 1. How often do you have a drink containing alcohol?: Never Total Score: 0 LUZMA-7 AMB Questionnaire LUZMA-7 Date LUZMA - 7 assessed: 07/04/25 Feeling nervous, anxious, or on edge: 0 = Not at all Not being able to stop or control worryin = Not at all Worrying too much about different things: 0 = Not at all Trouble relaxin = Not at all Being so restless that it is hard to sit still: 0 = Not at all Becoming easily annoyed or irritable: 0 = Not at all Feeling afraid as if something awful might happen: 0 = Not at all Total LUZMA-7 score (0-4 normal; 5-9 mild; 10-14 moderate; 15-21 severe): 0 Source: Developed by Drs. Stanley Poe, Ann Donovan, Juan Wolf and colleagues, with an educational fercho from [employer]. LUZMA-7 Assessment Billing LUZMA-7 Assessment Tool: LUZMA-7 Assessment 20380 Review of Systems Const Details: Most of review of system obtained from daughter, as patient unable to voice her symptoms ENT Denies nasal congestion and Denies nasal discharge Card Denies leg edema and Denies dyspnea Resp Denies cough and Denies dyspnea GI Denies abdominal pain and Denies change in bowel habits Denies hematuria, Denies urinary frequency and Reports urinary incontinence Musc Reports abnormal gait Neuro Reports abnormal gait, Reports memory loss and Denies seizure-like activity Psych Reports as per HPI and Reports memory loss Endo Denies polydipsia and Denies polyuria Colin/Lymph Denies easy bruising Aller/Immun Reports no additional complaints Physical exam (Primary Care) Tobacco/Smoking Status: Tobacco use Status Tobacco use date assessed 07/04/25 07/04/25 15:46 Patient Tobacco Use Status Former Tobacco user 07/04/25 15:46 e-Cigarette/Vaping Use Never Used 07/04/25 15:46 PHQ-9: PHQ-9 Score PHQ-9: Total score 0 07/04/25 16:14 Depression Screening Interpretation: Negative Thrive Assessment: Date of Thrive Assessment Date Thrive assessed 11/23/24 07/04/25 15:46 Currently or been in a relationship where the following occur: No concerns reported Telehealth Telehealth Telehealth Platform: [facility] Location of provider rendering services: practice address Location of patient: address on file Patient Identification confirmed using: Name, : Yes Telehealth method: video Patient verbally consented to treatment: Yes Patient verbally consented to billing insurance company: Yes Patient informed of any privacy concerns related to visit: Yes Minutes spent on Phone/Video with Pt.: 20 Coding Level of Care Code Tele Est Pt Level 4 (19502) Complex EM visit Add On G2211 Diagnoses Alzheimer's dementia G30.9; F02.80 Agitation due to dementia F03.911 Osteoarthritis M19.90 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; R80.9 Dyslipidemia E78.5 Additional Codes LUZMA-7 Assessment Billing - LUZMA-7 Assessment Tool: LUZMA-7 Assessment 92466 ([id number]) PHQ-9 - 44024 - PHQ-9 Billing: Yes ([id number]) Assessment & Plan Assessment & Plan (1) Alzheimer's dementia: Code(s): G30.9 - Alzheimer's disease, unspecified; F02.80 - Dementia in other diseases classified elsewhere, unspecified severity, without behavioral disturbance, psychotic disturbance, mood disturbance, and anxiety Category: Medical Plan: Continued on donepezil and memantine, starting to have further cognitive decline her daughter (2) Agitation due to dementia: Code(s): F03.911 - Unspecified dementia, unspecified severity, with agitation Category: Medical Plan: Being given Rexulti 1 mg once a day (3) Osteoarthritis: Code(s): M19.90 - Unspecified osteoarthritis, unspecified site Category: Medical Plan: Takes acetaminophen 500 mg once or twice a day as needed for joint pains (4) Type 2 diabetes mellitus with microalbuminuria: Code(s): E11.29 - Type 2 diabetes mellitus with other diabetic kidney complication; R80.9 - Proteinuria, unspecified Category: Medical Plan: Last hemoglobin A1c was 6.8% August 2024. Reinforced importance of adhering to healthy eating habits . Does not want to start medication at this time (5) Dyslipidemia: Code(s): E78.5 - Hyperlipidemia, unspecified Category: Medical Plan: Currently on atorvastatin 10 mg every other day, Medications: Changed From brexpiprazole Take half a tablet or 0.5 mg once a day for 7 days, and then increase it due to 1 mg daily afterwards 1 mg PO DAILY 30 tabs 1RF F02.80 - Dementia in other diseases classified elsewhere, unspecified severity, without behavioral disturbance, psychotic disturbance, mood disturbance, and anxiety, F03.911 - Unspecified dementia, unspecified severity, with agitation, G30.9 - Alzheimer's disease, unspecified To brexpiprazole (Rexulti) Take half a tablet or 0.5 mg once a day 1 mg PO DAILY F02.80 - Dementia in other diseases classified elsewhere, unspecified severity, without behavioral disturbance, psychotic disturbance, mood disturbance, and anxiety, F03.911 - Unspecified dementia, unspecified severity, with agitation, G30.9 - Alzheimer's disease, unspecified
--- OUTSIDE RECORDS SUMMARY | 2025-07-04 17:15 | XMS_ITS | Clinical Summary ---
Author Organization [facility] Address [address] [place] [address] Care Team Providers Care Blending Coordinator Name Role Phone LalitokaylalorettaVivianCristela L Primary Care Provider [phone] Allergies No known active allergies Medications memantine [...] mg by mouth in the morning. Active escitalopram (LEXAPRO) 20 mg tablet Take 20 mg by mouth in the morning. 5 Active Rexulti 1 mg tablet TAKE HALF A TABLET BY MOUTH FOR 7 DAYS, THEN INCREASE TO ONE TABLET DAILY 5 Active hydrOXYzine (ATARAX) 10 mg tablet TAKE ONE TABLET BY MOUTH DAILY AT BEDTIME NEEDED FOR ACUTE ANXIETY ATTACKS 5 Active RisperiDONE (RisperDAL) 0.25 mg tablet TAKE ONE TABLET BY MOUTH AT NOON AND MAY TAKE AN ADDITIONAL DOSE AT BEDTIME NEEDED FOR AGITATION 5 Active traMADoL (ULTRAM) 50 mg tablet take one tablet by mouth every day as needed for pain 5 Active traZODone (DESYREL) 50 mg tablet take one tablet by mouth daily at bedtime as needed for sleep 5 Active Active Problems No known active problems Encounters Date Type Department Care Team Description 04/14/2025 9:45 AM EDT Lab [facility] Department of Laboratory Medicine [address] [place] [id number] Oliguria and anuria (Primary Dx) 04/08/2025 Results Follow-Up [facility] Urgent [address] [address] Lily Walters PA-C Urine culture 04/07/2025 12:15 PM EDT Office Visit [facility] [address] [address] Peter Juan MD Nguyen, Dan K, PA-C Hematuria, unspecified type (Primary Dx); Acute cystitis with hematuria from Last 3 Months Immunizations Immunization Administration Dates Next Due COVID-19 MRNA A[place]A (PFIZER) 02/14/2022 COVID-19 mRNA (PFIZER) 07/12/2021 Covid-19 MRNA PFIZER Bivalent 09/10/2022 Covid-19 Seasonal Vaccine Pfizer 05/14/2023 Social History Tobacco Use Types Packs/Day Years Used Date Smoking Tobacco: Never Smokeless Tobacco: Never Tobacco Cessation:Counseling Given: Not Answered Comments No Sex and Gender Information Value Date Recorded Sex Assigned at Female 02/27/2025 7:55 PM EDT Legal Sex Female 7:58 PM EDT Gender Identity Female 02/27/2025 7:55 PM EDT Sexual Orientation Straight 02/27/2025 7: 55 PM EDT Last Filed Vital Signs Vital Sign Reading Time Taken Comments Blood Pressure 120/68 04/07/2025 12:22 PM EDT jaylen nujose l Pulse 94 04/07/2025 12:22 PM EDT Temperature 36.6 C (97.9 F) 04/07/2025 12:22 PM EDT Respiratory Rate 18 02/06/2025 9:22 PM EDT Oxygen Saturation 95% 04/07/2025 12:22 PM EDT Inhaled Oxygen Concentration - - Weight 57.2 kg (126 lb) 03/08/2024 9:30 AM EDT Height 162.6 cm (5' 4 ) 03/08/2024 9:30 AM EDT Body Mass Index 21.63 03/08/2024 9:30 AM EDT Plan of Treatment Upcoming Encounters Date Type Department Care Team (Late st Contact Info) Description 08/01/2025 8:00 AM EST Office Visit [facility] Department of Geriatrics [address] [place] [address] [address] [place] [address] Sameera Mercer APRN [address] [place], [place] [address] Mary Grace Oviedo MD [address] [facility] [place] [id number] Health Maintenance Due Date Last Done Comments Bone Density Screening 1940 HIV Screening 1940 Medicare Annual Wellness (AWV) 1940 DTaP,Tdap,and Td Vaccines (1 - Tdap) 10/25/1957 Pneumococcal Vaccine, 50+ Years (1 of 1 - PCV) 10/25/1989 Zoster Vaccines (1 of 2) 10/25/1989 COVID-19 Vaccine (5 - 2024- season) 2025 05/14/2023, 09/10/2022, 02/14/2022, Additional history exists Influenza Vaccine (#1) 2025 07/10/2024, 2022 HPV Vaccines Aged Out No longer eligi ble based on patient's age to complete this topic Hepatitis A Vaccines Aged Out No long er eligible based on patient's age to complete this topic Meningococcal Vaccine Aged Out No shemar jason eligible based on patient's age to complete this topic Procedures Procedure Name Priority Date/Time Associated Diagnosis Comments YELLOW NON-PRESERVATIVE HOLD TUBE, URINE Routine 04/14/2025 10:14 AM EDT Oliguria and anuria URINALYSIS, MACROSCOPIC REFLEX MICROSCOPIC AND CULTURE Routine 04/14/2025 10:14 AM EDT Oliguria and anuria URINALYSIS, MACROSCOPIC REFLEX MICROSCOPIC AND CULTURE (PANEL) Routine 04/14/2025 10:14 AM EDT Oliguria and anuria JENNINGS BORIC ACID TUBE, URINE Routine 04/14/2025 10:14 AM EDT Oliguria and anuria URINE CULTURE Routine 04/07/2025 12:55 PM EDT Hematuria, unspecified type POCT URINALYSIS DIPSTICK, AUTOMATED W/O MICROSCOPY Routine 04/07/2025 12:31 PM EDT from Last 3 Months Results * Urinalysis, macroscopic (04/14/2025 10:14 AM EDT) Color Yellow Yellow, Straw, Dark yellow 04/14/2025 1:46 PM EDT [facility] Clarity Clear Clear 04/14/2025 1:46 PM EDT [facility] Specific Gove 1.010 >1.005 - <1.030 04/14/2025 1:46 PM EDT [facility] pH 6.5 5.0 - 8.0 04/14/2025 1:46 PM EDT [facility] Glucose Qual Negative Negative mg/dL 04/14/2025 1:46 PM EDT [facility] Protein, Qual Negative Negative, Trace mg/dL 04/14/2025 1:46 PM EDT [facility] Ketones, Urine Negative Negative mg/dL 04/14/2025 1:46 PM EDT [facility] Bilirubin, Urine Negative Negative 04/14/20 1:46 PM EDT [facility] Hemoglobin Negative Negative 04/14/2025 1:46 PM EDT [facility] Nitrite Negative Negative 04/14/2025 1:46 PM EDT [facility] Urobilinogen 0.2 0.2 - 1.0 EU/dL 04/14/2025 1:46 PM EDT [facility] Leukocytes Negative Negative 04/14/2025 1:46 PM EDT [facility] Urine Voided urine specimen / Unknown Non-blood Collection / Unknown 04/14/2025 10:14 AM EDT 04/14/2025 10:14 AM EDT Cristela L Espinas LAB URINE ORDERABLES Final Res ult [facility] [address] [place] [address], [place] [phone] * Yellow top, urine (04/14/2025 10:14 AM EDT) Urine Urine specimen / Unknown Non-blood Collection / Unknown 04/14/2025 10:14 AM EDT 04/14/2025 10:14 AM EDT us Cristela L Espinas LAB URINE ORDERABLES Final Res ult [facility] [address] [place] [address], [place] [phone] * Jennings boric acid tube, urine (04/14/2025 10:14 AM EDT) Urine Voided urine specimen / Unknown Non-blood Collection / Unknown 04/14/2025 10:14 AM EDT 04/14/2025 10:14 AM EDT Cristela L Espinas LAB MICROBIOLOGY - GENERAL ORD ERABLES Final Result [facility] [address] [place] [address], [place] [phone] * Urine culture (04/07/2025 12:55 PM EDT) Urine Culture Mixed urogenital dolores. 04/09/2025 11:54 AM EDT [facility] Urine Urine specimen obtained by clean catch procedure / Unknown Non-blood Collection / Unknown 04/07/2025 12:55 PM EDT 04/07/2025 3:12 PM EDT Bernardino Conte PA-C LAB MICROBIOLOGY - GENERAL ORD ERABLES Final Result [facility] [address] [place] [address], * (ABNORMAL) POCT Urinalysis Dipstick, Automated w/o microscopy (04/07/2025 12:31 PM EDT) Color, UA Yellow Yellow 04/07/2025 12:32 PM EDT [facility] Comment:CLIA#: [id number] Clarity, UA Cloudy(A) Clear 04/07/2025 12:32 PM EDT [facility] Glucose, UA Negative Negative mg/dL 04/07/2025 12:32 PM EDT [facility] Bilirubin, UA Negative Negative 04/07/2025 12:32 PM EDT [facility] Ketones, Urine 40(A) Negative, >=160 mg/dL 04/07/2025 12:32 PM EDT [facility] Specific Gove, UA >=1.030 1.003 - 1.035 04/07/2025 12:32 PM EDT [facility] Blood, UA Trace-intact (A) Negative 04/07/2025 12:32 PM EDT [facility] pH, UA 5.5 5.0 - 8.0 04/07/2025 12:32 PM EDT [facility] Protein, UA 30(A) Negative mg/dL 04/07/2025 12:32 PM EDT [facility] Urobilinogen, UA 0.2 0.2, 1.0 EU/dL 04/07/2025 12:32 PM EDT [facility] Nitrite, UA Negative Negative 04/07/2025 12:32 PM EDT [facility] Leukocytes esterase, UA Negative Negative 04/07/2025 12:32 PM EDT [facility] Test strip lot # 04/07/2025 12:32 PM EDT [facility] Test strip exp. date 04/07/2025 12:32 PM EDT [facility] Email Developer ID [id number] 04/07/2025 12:32 PM EDT [facility] Instrument ID [id number] 04/07/2025 12:32 PM EDT [facility] Urine 04/07/2025 12:3 1 PM EDT 04/07/2025 12:32 PM EDT Bernardino Conte PA-C LAB POCT ORDERABLES - DEVICE F inal Result [facility] [address] [place] [address], from Last 3 Months Insurance [employer] MANAGED MEDICARE PPO MEDICAID HUSKY C Care Teams Blending Coordinator Relationship Specialty Start Date End Date Cristela Brand [address] [place] [id number] PCP - General Primary Care 12/07/23
--- OUTSIDE RECORDS SUMMARY | 2025-07-04 17:15 | XMS_ITS | Patient Health Record ---
[facility] Address [address] [place] [address] Care Team Providers Care Development Editor Name Role Phone Cathie GIFFORD, Cristela Allen Primary Care Provider Un available Keaton Anderson Unavailable [phone] Allergies Allergen (clinical drug ingredient) Drug/Non Drug [...] Status W/U Status Risk Notes Problem Type II diabetes mellitus without complication (583015564) Type 2 diabetes mellitus without complication (E11.9) Active confirmed Plan Of Treatment Pending Test Test Name Order Date [id number] NAIL, 6 OR MORE 01/29/2018 [id number] NAIL, 6 OR MORE 05/07/2018 [id number] NAIL, 6 OR MORE 07/22/2018 [id number] NAIL, 6 OR MORE 11/23/2018 [id number] NAIL, 6 OR MORE 03/22/2019 [id number] NAIL, 6 OR MORE 07/15/2019 [id number] NAIL, 6 OR MORE 04/24/2020 [id number] NAIL, 6 OR MORE 01/17/2022 [id number] Plate 07/22/2018 [id number] Plate 04/24/2020 [id number] Plate 07/15/2019 [id number] Plate Each Additional 42301 I&D ABSCESS- SIMPLE,SINGLE 019 Insurance Providers Payer Name Payer Address Payer Phone Subscriber Number Group Number Insured Name Patient Relationship to Insured Coverage Start Date Coverage End Date Medicare National Govt [employer] [address] [place] [address] [id number] Kisha Mejia Self - patient is the insured 6 [employer] [address] [place] [address] [phone] [id number] Kisha Mejia Self - patient is the insured Medical (General) History Medical History History ICD Code Back,Hip,and Knee pain Diabetic - diet controlled Gall bladder problems High blood pressure 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
== END 2025-07-04 16:30 | disposition home or self-care (01) ==
LOC: HO.HMCC 15:49
PROVIDERS: PCP Internal Medicine; Visit Provider Internal Medicine
DX: G30.9 Alzheimer's disease, unspecified (principal); F02.80 Dementia in other diseases classified elsewhere, unspecified severity, without behavioral disturbance, psychotic disturbance, mood disturbance, and anxiety; F03.911 Unspecified dementia, unspecified severity, with agitation; M19.90 Unspecified osteoarthritis, unspecified site; E11.29 Type 2 diabetes mellitus with other diabetic kidney complication; R80.9 Proteinuria, unspecified; E78.5 Hyperlipidemia, unspecified

== ENCOUNTER → 2025-07-04 15:49 | Outpatient (BNVA) | payer MEDICARE, SELFPAY | PROVIDERS: PCP Internal Medicine; Visit Provider Internal Medicine | DX: E11.29 Type 2 diabetes mellitus with other diabetic kidney complication (principal); R32 Unspecified urinary incontinence; R15.9 Full incontinence of feces; G30.9 Alzheimer's disease, unspecified; F02.811 Dementia in other diseases classified elsewhere, unspecified severity, with agitation; M19.90 Unspecified osteoarthritis, unspecified site; R80.9 Proteinuria, unspecified; E78.5 Hyperlipidemia, unspecified | CPT/HCPCS: 96127 ==